=== PATIENT | female | born 1965 | race Caucasian/White ===

== ENCOUNTER 2018-12-28 20:54 | Emergency (ER) | payer OTHER ==
[2018-12-28] MEDS ORDERED: METOCLOPRAMIDE 5 MG/ML 2 ML VIAL IVP STA (21:52)
[2018-12-28] MEDS ORDERED: HYDROmorphone 0.5 MG/0.5 ML SYRINGE IVP STA (21:52)
[2018-12-28] MEDS ORDERED: SODIUM CHLORIDE 0.9% 1,000 ML IV STA (21:52)
--- NOTE | 2018-12-28 21:58 | ED ---
General Adult HPI - General Chief complaint: Nausea/Vomiting/Diarrhea Stated complaint: Abd pain Time Seen by Provider: 12/28/18 21:37 Source: patient, family, RN notes reviewed Mode of arrival: wheelchair Limitations: no limitations - History of Present Illness Initial comments: Patient is a pleasant 53-year-old female presenting to the emergency department with complaints of right-sided abdominal discomfort. Onset of symptoms was just a couple hours ago. Symptoms did start fairly after eating. Patient admits to intermittent. Patient has associated nausea and vomiting and sweating. Discomfort is somewhat severe. Discomfort is right abdomen and somewhat towards the back. No history of similar symptoms associated with urinary symptoms - Related Data Home Medications Medication Instructions Recorded Confirmed Cholecalciferol [Vitamin D3] 1,000 unit PO DAILY 12/28/18 12/28/18 Gabapentin [Neurontin] 300 mg PO TID 12/28/18 12/28/18 L.acidoph,Paracasei, B.lactis 1 cap PO DAILY 12/28/18 12/28/18 [Probiotic] Multivitamin [Multivitamins Adult 1 tab PO DAILY 12/28/18 12/28/18 Gummies] [place]-3/Dha/Epa/Fish Oil [Fish Oil 1 cap PO DAILY 12/28/18 12/28/18 500 mg Softgel] QUEtiapine [SEROquel] 25 mg PO HS 12/28/18 12/28/18 Wheat Dextrin [Benefiber] 1 pack PO DAILY 12/28/18 12/28/18 cloNIDine HCL [Catapres] 0.1 mg PO HS 12/28/18 12/28/18 clonazePAM [KlonoPIN] 0.25 mg PO DAILY 12/28/18 12/28/18 Previous Rx's Medication Instructions Recorded Cephalexin [Keflex] 500 mg PO QID #40 cap 12/29/18 Allergies Allergy/AdvReac Type Severity Reaction Status Date / Time ciprofloxacin [From Cipro] AdvReac Nausea & Verified 12/28/18 21:36 Vomiting & Diarrhea prednisone AdvReac Unknown Verified 12/28/18 21:36 Review of Systems ROS Statement: Those systems with pertinent positive or pertinent negative responses have been documented in the HPI. ROS Other: All systems not noted in ROS Statement are negative. Constitutional: Denies: fever Eyes: Denies: eye pain ENT: Denies: ear pain Respiratory: Denies: cough, dyspnea Cardiovascular: Denies: chest pain Endocrine: Denies: fatigue Gastrointestinal: Reports: abdominal pain, nausea, vomiting Genitourinary: Denies: dysuria, hematuria Musculoskeletal: Reports: back pain (Right flank) Skin: Denies: rash Neurological: Denies: weakness Past Medical History Past Medical History: No Reported History History of Any Multi-Drug Resistant Organisms: MRSA Date of last positivie culture/infection: 10/16/16 MDRO Source:: Urine Past Surgical History: No Surgical Hx Reported Past Psychological History: Anxiety Smoking Status: Current every day smoker Past Alcohol Use History: None Reported Past Drug Use History: None Reported General Exam Limitations: no limitations General appearance: alert, in no apparent distress Head exam: Present: atraumatic Eye exam: Present: normal appearance, PERRL ENT exam: Present: normal oropharynx Neck exam: Present: normal inspection Respiratory exam: Present: normal lung sounds bilaterally Cardiovascular Exam: Present: regular rate, normal rhythm Expanded Peripheral pulses: 2+: Dorsalis Pedis (R), Dorsalis Pedis (L) GI/Abdominal exam: Present: soft, tenderness (Moderate tenderness right side of the abdomen), guarding (Right-sided), normal bowel sounds. Absent: distended, rebound, rigid, pulsatile mass Extremities exam: Present: normal inspection Back exam: Present: tenderness (Mild tenderness right posterior flank region) Neurological exam: Present: alert Psychiatric exam: Present: normal affect, normal mood Skin exam: Present: normal color Course Vital Signs 12/28/18 12/28/18 12/28/18 21:10 22:20 23:13 Temperature 97.5 F L Pulse Rate 49 L 51 L 55 L Respiratory 18 18 16 Rate Blood Pressure 162/85 181/95 169/91 O2 Sat by Pulse 96 99 97 Oximetry 12/29/18 00:17 Temperature 98.5 F Pulse Rate 50 L Respiratory 18 Rate Blood Pressure 167/90 O2 Sat by Pulse 97 Oximetry Medical Decision Making - Medical Decision Making Patient reevaluated and states discomfort is tolerable at this point. Patient is updated on results. Case was discussed in detail with Dr. Zarco, who is comfortable with discharge of patient and will follow-up this week. Patient was updated. - Lab Data Result diagrams: 12/28/18 22:10 12/28/18 22:10 Lab Results 12/28/18 12/28/1819 Range/Units 22:10 22:10 22:10 WBC 17.1 H (3.8-10.6) k/uL RBC 5.82 H (3.80-5.40) m/uL Hgb 16.3 H (11.4-16.0) gm/dL Hct 51.9 H (34.0-46.0) % MCV 89.2 (80.0-100.0) fL MCH 27.9 (25.0-35.0) pg MCHC 31.3 (31.0-37.0) g/dL RDW 14.1 (11.5-15.5) % Plt Count 267 (150-450) k/uL Neutrophils % 84 % Lymphocytes % 11 % Monocytes % 3 % Eosinophils % 1 % Basophils % 0 % Neutrophils # 14.4 H (1.3-7.7) k/uL Lymphocytes # 1.9 (1.0-4.8) k/uL Monocytes # 0.5 (0-1.0) k/uL Eosinophils # 0.2 (0-0.7) k/uL Basophils # 0.1 (0-0.2) k/uL PT 10.5 (9.0-12.0) sec INR 1.0 (<1.2) APTT 19.4 L (22.0-30.0) sec Sodium 143 (137-145) mmol/L Potassium 5.0 (3.5-5.1) mmol/L Chloride 106 (98-107) mmol/L Carbon Dioxide 26 (22-30) mmol/L Anion Gap 11 mmol/L BUN 17 (7-17) mg/dL Creatinine 0.75 (0.52-1.04) mg/dL Est GFR (CKD-EPI)AfAm >90 (>60 ml/min/1.73 sqM) Est GFR (CKD-EPI)NonAf >90 (>60 ml/min/1.73 sqM) Glucose 151 H (74-99) mg/dL Calcium 10.4 H (8.4-10.2) mg/dL Total Bilirubin 0.7 (0.2-1.3) mg/dL AST 46 H (14-36) U/L ALT 50 (9-52) U/L Alkaline Phosphatase 85 (38-126) U/L Total Protein 8.2 (6.3-8.2) g/dL Albumin 4.9 (3.5-5.0) g/dL Amylase 75 (30-110) U/L Lipase 146 (23-300) U/L Urine Color Urine Appearance (Clear) Urine pH (5.0-8.0) Ur Specific [place] (1.001-1.035) Urine Protein (Negative) Urine Glucose (UA) (Negative) Urine Ketones (Negative) Urine Blood (Negative) Urine Nitrite (Negative) Urine Bilirubin (Negative) Urine Urobilinogen (<2.0) mg/dL Ur Leukocyte Esterase (Negative) Urine RBC (0-5) /hpf Urine WBC (0-5) /hpf Urine WBC Clumps (None) /hpf Ur Squamous Epith Cells (0-4) /hpf Urine Bacteria (None) /hpf Urine Mucus (None) /hpf 12/28/18 Range/Units 22:59 WBC (3.8-10.6) k/uL RBC (3.80-5.40) m/uL Hgb (11.4-16.0) gm/dL Hct (34.0-46.0) % MCV (80.0-100.0) fL MCH (25.0-35.0) pg MCHC (31.0-37.0) g/dL RDW (11.5-15.5) % Plt Count (150-450) k/uL Neutrophils % % Lymphocytes % % Monocytes % % Eosinophils % % Basophils % % Neutrophils # (1.3-7.7) k/uL Lymphocytes # (1.0-4.8) k/uL Monocytes # (0-1.0) k/uL Eosinophils # (0-0.7) k/uL Basophils # (0-0.2) k/uL PT (9.0-12.0) sec INR (<1.2) APTT (22.0-30.0) sec Sodium (137-145) mmol/L Potassium (3.5-5.1) mmol/L Chloride (98-107) mmol/L Carbon Dioxide (22-30) mmol/L Anion Gap mmol/L BUN (7-17) mg/dL Creatinine (0.52-1.04) mg/dL Est GFR (CKD-EPI)AfAm (>60 ml/min/1.73 sqM) Est GFR (CKD-EPI)NonAf (>60 ml/min/1.73 sqM) Glucose (74-99) mg/dL Calcium (8.4-10.2) mg/dL Total Bilirubin (0.2-1.3) mg/dL AST (14-36) U/L ALT (9-52) U/L Alkaline Phosphatase (38-126) U/L Total Protein (6.3-8.2) g/dL Albumin (3.5-5.0) g/dL Amylase (30-110) U/L Lipase (23-300) U/L Urine Color Yellow Urine Appearance Clear (Clear) Urine pH 6.0 (5.0-8.0) Ur Specific [place] 1.015 (1.001-1.035) Urine Protein Trace H (Negative) Urine Glucose (UA) Negative (Negative) Urine Ketones 1+ H (Negative) Urine Blood Small H (Negative) Urine Nitrite Negative (Negative) Urine Bilirubin Negative (Negative) Urine Urobilinogen <2.0 (<2.0) mg/dL Ur Leukocyte Esterase Large H (Negative) Urine RBC 19 H (0-5) /hpf Urine WBC 49 H (0-5) /hpf Urine WBC Clumps Rare H (None) /hpf Ur Squamous Epith Cells 5 H (0-4) /hpf Urine Bacteria Rare H (None) /hpf Urine Mucus Rare H (None) /hpf - Radiology Data Radiology results: image reviewed (Computed tomography scan of the abdomen pel vis shows Fabian hydronephrosis on the right kidney without obvious stone. Suspected stenosis or obstruction near the pelvis.) Disposition Clinical Impression: Urinary tract infection, Hydronephrosis Disposition: HOME SELF-CARE Condition: Stable Instructions (If sedation given, give patient instructions): Hydronephrosis (ED), Urinary Tract Infection in Women (ED) Additional Instructions: Please follow-up with urology, Dr. Roper this week. Please also follow-up with your primary care physician. Return for increased pain, vomiting, fevers, worsening symptoms or other concerns. Prescriptions: Cephalexin [Keflex] 500 mg PO QID #40 cap Is patient prescribed a controlled substance at d/c from ED?: No Referrals: Gaetano Zarco MD [STAFF PHYSICIAN] - 1-2 days Elida Isaac MD [STAFF PHYSICIAN] - 1-2 days
[2018-12-28 22:30] LABS: Basophils # (A) 0.1 k/uL (0-0.2); Basophils % (A) 0 %; Eosinophils # (A) 0.2 k/uL (0-0.7); Eosinophils % (A) 1 %; HCT 51.9 % (34.0-46.0); HGB 16.3 gm/dL (11.4-16.0); Lymphocytes # (A) 1.9 k/uL (1.0-4.8); Lymphocytes % (A) 11 %; MCH 27.9 pg (25.0-35.0); MCHC 31.3 g/dL (31.0-37.0); MCV 89.2 fL (80.0-100.0); Mean Platelet Volume 8.2; Monocytes # (A) 0.5 k/uL (0-1.0); Monocytes % (A) 3 %; Neutrophils # (A) 14.4 k/uL (1.3-7.7); Neutrophils % (A) 84 %; Platelet Count 267 k/uL (150-450); RBC 5.82 m/uL (3.80-5.40); RDW 14.1 % (11.5-15.5); WBC 17.1 k/uL (3.8-10.6)
[2018-12-28 22:39] LABS: ALT 50 U/L (9-52); AST 46 U/L (14-36); Albumin 4.9 g/dL (3.5-5.0); Alkaline Phosphatase 85 U/L (38-126); Amylase 75 U/L (30-110); Anion Gap 11 mmol/L; Blood Urea Nitrogen 17 mg/dL (7-17); Calcium 10.4 mg/dL (8.4-10.2); Carbon Dioxide 26 mmol/L (22-30); Chloride 106 mmol/L (98-107); Glucose 151 mg/dL (74-99); Lipase 146 U/L (23-300); Sodium 143 mmol/L (137-145); Total Bilirubin 0.7 mg/dL (0.2-1.3); Total Protein 8.2 g/dL (6.3-8.2)
[2018-12-28 22:54] LABS: Prothrombin Time 10.5 sec (9.0-12.0)
[2018-12-28 23:10] LABS: Partial Thromboplastin Time 19.4 sec (22.0-30.0)
[2018-12-28 23:22] LABS: Appearance,Urine Clear (Clear); Bacteria,Urine Rare /hpf; Bilirubin,Urine Negative (Negative); Blood,Urine Small (Negative); Color,Urine Yellow; Glucose,Urine (UA) Negative (Negative); Ketones,Urine 1+ (Negative); Leukocyte Esterase,Urine Large (Negative); Mucus,Urine Rare /hpf; Nitrite,Urine Negative (Negative); Protein,Urine Trace (Negative); RBC,Urine 19 /hpf (0-5); Specific Gravity,Urine 1.015 (1.001-1.035); Squamous Epithelial Cell,Urine 5 /hpf (0-4); Urobilinogen,Urine <2.0 mg/dL (<2.0); WBC,Urine 49 /hpf (0-5)
--- NOTE | 2018-12-28 23:31 | CT ---
EXAM: CT Abdomen and Pelvis Without Intravenous Contrast CLINICAL HISTORY: Reason: abdominal pain TECHNIQUE: Axial computed tomography images of the abdomen and pelvis without intravenous contrast. CTDI is 6.0 mGy and DLP is 296.4 mGy-cm. This CT exam was performed using one or more of the following dose reduction techniques: automated exposure control, adjustment of the mA and/or kV according to patient size, and/or use of iterative reconstruction technique. COMPARISON: CT abdomen-pelvis 10/16/2016 FINDINGS: Lung bases: Imaged lung bases are clear of focal infiltrates. ABDOMEN: Liver: Chronic right hepatic calcifications, unchanged. No other focal hepatic abnormalities. Gallbladder and bile ducts: Gallbladder is partially contracted. No calcified gallstones identified. No definite biliary dilatation. Pancreas: No definite pancreatic abnormality identified. Spleen: Spleen is unremarkable. Adrenals: No adrenal masses. Kidneys and ureters: Development of severe right hydronephrosis with marked dilatation of right pelvo-calyceal collecting system. No obstructing calculi identified. No ureteral dilatation. Punctate left renal calcification most likely vascular. No evidence of left-sided hydronephrosis or obstructing renal calculi. Stomach and bowel: Stomach is nondistended. No evidence of bowel obstruction or pneumoperitoneum. PELVIS: Appendix: Appendix not clearly identified. Bladder: Urinary bladder is unremarkable. No bladder calculi. Reproductive: Unremarkable as visualized. ABDOMEN and PELVIS: Intraperitoneal space: See above. Bones/joints: Mild lower lumbar spine degenerative changes with mild grade 1 L4-5 anterolisthesis. Vasculature: Moderate calcific atherosclerotic disease. No abdominal aortic aneurysm. Lymph nodes: No evidence of lymphadenopathy. IMPRESSION: Development of severe right hydronephrosis with marked pelvicalyceal dilatation. No obstructing calculi identified and no ureteral dilatation is evident. Findings raise possibility of right ureteropelvic junction obstruction/stenosis. Retrograde pyelography may be considered for further evaluation. No evidence of bowel obstruction or pneumoperitoneum.
[2018-12-29 00:19] VITALS: BP 167/90; PULSE 50; RESP 18; TEMP 98.5
[2018-12-29] MEDS ORDERED: cefTRIAXone IN SWFI 1,000 MG/10 ML SYRINGE IVP STA (00:22)
[2018-12-29] MEDS ORDERED: ONDANSETRON 4 MG ODT STARTER PACK 2 TAB BTL PO STA (00:55)
== END 2018-12-29 01:21 ==
LOC: EC 20:54
DX: N39.0 Urinary tract infection, site not specified (principal); N13.30 Unspecified hydronephrosis; F41.9 Anxiety disorder, unspecified; F17.200 Nicotine dependence, unspecified, uncomplicated; Z86.14 Personal history of Methicillin resistant Staphylococcus aureus infection; Z79.899 Other long term (current) drug therapy; Z88.1 Allergy status to other antibiotic agents; Z88.8 Allergy status to other drugs, medicaments and biological substances
CPT/HCPCS: 36415; 80053; 82150; 83690; 85025; 85610; 85730; 81001; 87086; 74176; 99284; 96374; 96375 ×2; 96361 ×2; J2765; J0696; S0119; J1170

== ENCOUNTER → 2019-09-10 | Outpatient (CLI) | payer OTHER ==
--- NOTE | 2019-09-10 15:19 | US ---
EXAMINATION TYPE: US kidneys/renal and bladder DATE OF EXAM: 09/10/2019 COMPARISON: NONE CLINICAL HISTORY: R39.89 Pain in bladder, N13.5 Rt ureteral obstruct. Patient states she had uretal surgery for a kink at the ureteropelvic junction. EXAM MEASUREMENTS: Right Kidney: 12.2 x 3.8 x 5.1 cm Left Kidney: 10.5 x 4.5 x 4.4 cm Post Void Residual Volume: 6ml Right Kidney: Moderate right-sided hydronephrosis Left Kidney: Pelvocaliectasis vs mild hydronephrosis Bladder: Within normal limits Bilateral Jets seen: Yes Normal Post Void Residual: yes No nephrolithiasis is seen. No masses are identified. The urinary bladder is anechoic. Bilateral u reteral jets are seen. IMPRESSION: Moderate right hydronephrosis and pelvocaliectasis versus mild hydronephrosis on the left. No source for the striking process is seen on ultrasound.
== END ==
LOC: RADUSWWP 14:17
PROVIDERS: ATTEND Family Medicine
DX: N13.30 Unspecified hydronephrosis (principal)
CPT/HCPCS: 76770

== ENCOUNTER → 2019-12-13 | Outpatient (CLI) | payer OTHER ==
--- NOTE | 2019-12-14 18:59 | CT ---
EXAMINATION TYPE: CT abdomen pelvis w con DATE OF EXAM: 12/13/2019 COMPARISON: 12/28/2018 HISTORY: Left upper quadrant pain CT DLP: 422.9 mGycm CONTRAST: CT scan of the abdomen and pelvis is performed with Oral Contrast and with IV Contrast, patient injec craig with 100 mL of Isovue 300. FINDINGS: LUNG BASES-: No visible nodule. No infiltrate. LIVER/GB: No calcified gallstones. Focal hepatic calcification. No space occupying hepatic lesion. Biliary tree is of normal caliber. PANCREAS: No inflammation. No distinct mass. SPLEEN: No splenic enlargement. No lesion seen. ADRENALS: No nodule. No thickening. KIDNEYS/BLADDER: No hydronephrosis. No nephrolithiasis. Right-sided parapelvic renal cysts with low lying right kidney. Renal cortical cyst lower pole left kidney measures approximately 1 cm. Urinary bladder grossly unremarkable. BOWEL: Normal appendix. Normal bowel caliber. No inflammation. GENITAL ORGANS: No gross abnormality. LYMPH NODES: No greater than 1cm abdominal or pelvic lymph nodes are appreciated. AORTA: No significant abnormality. OSSEOUS STRUCTURES: No significant abnormality is seen. OTHER: No significant additional abnormality is seen. IMPRESSION: 1. Right-sided parapelvic renal cysts with low lying right kidney. Renal cortical cyst lower pole lef t kidney measures approximately 1 cm.
== END ==
LOC: RADCTMAIN 11:17
PROVIDERS: ATTEND Family Medicine
DX: N28.1 Cyst of kidney, acquired (principal)
CPT/HCPCS: 74177; Q9967 ×2

== ENCOUNTER 2022-06-28 18:56 | Emergency (ER) | payer OTHER ==
[2022-06-28 20:00] VITALS: TEMP 99
[2022-06-28 20:05] VITALS: RESP 17
[2022-06-28] MEDS ORDERED: IPRATROPIUM-ALBUTEROL 3 ML NEB INHALATION STA (20:07)
[2022-06-28] MEDS ORDERED: dexAMETHasone 2 MG TAB PO STA (20:08)
--- NOTE | 2022-06-28 20:14 | ED ---
General Adult HPI - General Chief complaint: Upper Respiratory Infection Stated complaint: Pneumonia Time Seen by Provider: 06/28/22 19:55 Source: patient, RN notes reviewed, old records reviewed Mode of arrival: ambulatory Limitations: no limitations - History of Present Illness Initial comments: Patient is a 57-year-old female with past medical history remarkable for COPD, smoking, who presents emergency department after being sent by her PCP to rule out pneumonia. For the last 3 weeks, she has been having worsening congestion, shortness of breath. He has been coughing. Previously was having productive sputum of yellow, green mucous. States it is improved. Now more of a dry cough. Denies chest pain. Denies nausea, vomiting, diarrhea. Was not vaccinated for Covid. Was tested for Covid 2 days ago and was negative. Finished 2 courses of azithromycin with minimal improvement. Presents for further evaluation at this time after being sent by her PCP. - Related Data Home Medications Medication Instructions Recorded Confirmed Cholecalciferol [Vitamin D3] 1,000 unit PO DAILY 12/28/18 12/28/18 Gabapentin [Neurontin] 300 mg PO TID 12/28/18 12/28/18 L.acidoph,Paracasei, B.lactis 1 cap PO DAILY 12/28/18 12/28/18 [Probiotic] Multivitamin [Multivitamins Adult 1 tab PO DAILY 12/28/18 12/28/18 Gummies] [place]-3/Dha/Epa/Fish Oil [Fish Oil 1 cap PO DAILY 12/28/18 12/28/18 500 mg Softgel] QUEtiapine [SEROquel] 25 mg PO HS 12/28/18 12/28/18 Wheat Dextrin [Benefiber] 1 pack PO DAILY 12/28/18 12/28/18 cloNIDine HCL [Catapres] 0.1 mg PO HS 12/28/18 12/28/18 clonazePAM [KlonoPIN] 0.25 mg PO DAILY 12/28/18 12/28/18 Previous Rx's Medication Instructions Recorded Cephalexin [Keflex] 500 mg PO QID #40 cap 12/29/18 Ibuprofen [Motrin] 600 mg PO Q6HR PRN #20 tab 12/29/18 Albuterol Inhaler [Ventolin Hfa 1 puff INHALATION RT-TID #8 gm 06/28/22 Inhaler] Doxycycline Hyclate 100 mg PO BID 7 Days #14 capsule 06/28/22 dexAMETHasone [Decadron] 4 mg PO DAILY 5 Days #5 tablet 06/28/22 Allergies Allergy/AdvReac Type Severity Reaction Status Date / Time ciprofloxacin [From Cipro] AdvReac Nausea & Verified 06/28/22 19:27 Vomiting & Diarrhea prednisone AdvReac Unknown Verified 06/28/22 19:27 Review of Systems ROS Statement: Those systems with pertinent positive or pertinent negative responses have been documented in the HPI. Review of Systems: CONST: Denies fever EYES: Denies blurry vision ENT: Denies nasal congestion C/V: Denies Chest pain RESP: Endorses wheezing GI: Denies abdominal pain : Denies dysuria SKIN: Denies rash. MSK: Denies joint pain. NEURO: Denies headache ROS Other: All systems not noted in ROS Statement are negative. Past Medical History Past Medical History: No Reported History History of Any Multi-Drug Resistant Organisms: MRSA Date of last positivie culture/infection: 10/16/16 MDRO Source:: Urine Past Surgical History: No Surgical Hx Reported Past Psychological History: Anxiety Smoking Status: Current every day smoker Past Alcohol Use History: None Reported Past Drug Use History: None Reported General Exam - General Exam Comments Initial Comments: General: Appears in no acute distress. HEAD: Normal with no signs of head trauma. EYES: EOMI ENT: Hearing grossly intact, normal oropharynx. RESPIRATORY: Bilateral end expiratory wheezing. No obvious rhonchi. No hypoxia. No increased work of breathing. C/V: Regular rate and rhythm. S1 and S2 auscultated, no edema, peripheral pulses 2+ and intact throughout ABD: Abd is soft, nontender, nondistended EXT: Normal range of motion, no obvious deformity SKIN: No rashes or lesions observed on exposed skin. NEURO: Alert and oriented x 4. Limitations: no limitations Course Vital Signs 06/28/22 06/28/22 06/28/22 19:25 19:27 20:03 Temperature 97.4 F L 99.0 F Pulse Rate 90 83 Respiratory 18 18 17 Rate Blood Pressure 138/89 121/77 O2 Sat by Pulse 97 95 Oximetry 06/28/22 06/28/22 06/28/22 20:40 20:51 22:00 Temperature 99.0 F Pulse Rate 88 88 77 Respiratory 17 Rate Blood Pressure 129/78 O2 Sat by Pulse 95 Oximetry Medical Decision Making - Medical Decision Making Based on the patient's presentation and physical exam, I do believe she is having a COPD exacerbation as well as possible bronchitis or pneumonia. She'll be symptomatically treated with steroids, breathing treatment. We'll obtain a chest x-ray as well as the Covid swab. She was in agreement this plan. Vital signs within normal limits. No respiratory distress. Covid swab was negative. Chest x-ray shows COPD changes without signs of acute pneumonia. I discussed times with the patient. Wheezing and breathing are improved. I did discuss with her believe she is likely experiencing bronchitis with a COPD exacerbation. She was in agreement with this explanation. She'll be started on antibiotics as well as steroids and sent home with an albuterol inhaler. She was in agreement this plan. I will provide the patient with a prescription for Decadron, albuterol, doxycycline. I instructed the patient to follow up with their PCP in the next 1- 3 days. I explained that the patient should return to the emergency department if they experience any worsening symptoms. Strict return precautions were discussed with the patient. The patient expressed understanding of these instructions. I answered all questions that the patient had. The patient was discharged home in good condition with their prescriptions and follow up information. - Lab Data Lab Results 06/28/22 Range/Units 20:07 Coronavirus (PCR) Not Detected (Not Detectd) Disposition Clinical Impression: COPD exacerbation, Bronchitis Disposition: HOME SELF-CARE Condition: Good Instructions (If sedation given, give patient instructions): COPD (Chronic Obstructive Pulmonary Disease) (ED), Acute Bronchitis (ED) Prescriptions: dexAMETHasone [Decadron] 4 mg PO DAILY 5 Days #5 tablet Doxycycline Hyclate 100 mg PO BID 7 Days #14 capsule Albuterol Inhaler [Ventolin Hfa Inhaler] 1 puff INHALATION RT-TID #8 gm Is patient prescribed a controlled substance at d/c from ED?: No Referrals: Vini Gasca MD [Primary Care Provider] - 1-2 days Time of Disposition: 22:20
[2022-06-28 22:22] VITALS: BP 129/78; PULSE 77
[2022-06-28] MEDS ORDERED: DOXYCYCLINE 100 MG CAP PO STA (22:26)
--- NOTE | 2022-06-28 22:41 | XR ---
EXAM: XR Chest, 2 Views CLINICAL HISTORY: ITS.REASON XR Reason: cough TECHNIQUE: Frontal and lateral views of the chest. COMPARISON: No relevant prior studies available. FINDINGS: Lungs: Linear scarring or atelectasis at the left lung base. No consolidation. Pleural space: Unremarkable. No pneumothorax. Heart: Unremarkable. No cardiomegaly. Mediastinum: Unremarkable. Bones/joints: Unremarkable. IMPRESSION: No evidence of acute cardiopulmonary process.
== END 2022-06-28 22:35 | disposition home or self-care (01) ==
LOC: EC 18:56
DX: J44.1 Chronic obstructive pulmonary disease with (acute) exacerbation (principal); F17.200 Nicotine dependence, unspecified, uncomplicated; Z20.822 Contact with and (suspected) exposure to COVID-19; Z88.1 Allergy status to other antibiotic agents; Z88.8 Allergy status to other drugs, medicaments and biological substances
CPT/HCPCS: 94640; 87635; 71046; 99285; J8540

== ENCOUNTER 2023-03-30 12:21 | Day surgery (SDC) | payer OTHER ==
[2023-03-28 08:42] VITALS: BMI 35.3
[~2023-03-30 12:21] MED LIST: LACTATED RINGERS 1,000 ML IV SCH; LIDOCAINE 1% (10MG/ML) FOR IV START INTRADERMA PRN
[2023-03-30 13:17] VITALS: TEMP 97.2
[2023-03-30] MEDS ORDERED: LIDOCAINE 2% INJ 20 MG/ML (2 ML VIAL) ONE (14:50)
[2023-03-30] MEDS ORDERED: PROPOFOL 10 MG/ML 20 ML VIAL IV ONE (14:50)
--- NOTE | 2023-03-30 14:58 | P.PCN ---
Date of Procedure: 03/30/23 Procedure(s) Performed: BRIEF HISTORY: Patient is a 57-year-old, pleasant, white female scheduled for an upper endoscopy as a part of evaluation of epigastric pain/passive regurgitation and heartburn for the last 6 months duration. Presently on Protonix 20 mg twice daily and Pepcid at bedtime with some improvement in his symptoms. PROCEDURE PERFORMED: Esophagogastroduodenoscopy with biopsy. PREOPERATIVE DIAGNOSIS: GERD/epigastric pain and passive regurgitation. IV sedation per anesthesia. PROCEDURE: After informed consent was obtained, the patient was brought into the endoscopy unit. IV sedation was administered by Anesthesia under continuous monitoring. Initially the Olympus GIF-140 video endoscope was inserted into the mouth. Esophagus intubated without any difficulty. It was gradually advanced into the stomach and duodenum and carefully examined. The bulb and the second part of the duodenum appeared normal. The scope at this time was withdrawn to the stomach, adequately insufflated with air, and upon careful examination, mucosa of the antrum, had mild gastritis and biopsies were done from this area. Mucosa of the body, cardia and the fundus appeared normal. The scope was then withdrawn into the esophagus. The GE junction was located at 39 cm from the incisors. Small hiatal hernia. The esophagus appeared normal. There were no erosions or ulcerations seen and the patient tolerated the procedure well. IMPRESSION: 1. Mild antral gastritis. 2. Small hiatal hernia. RECOMMENDATIONS: The findings of this examination were discussed with the patient as well as a family. She was advised to follow with the biopsy results and continue with Protonix 20 mg twice daily and change the Pepcid to bedtime and follow antireflux measures.
[2023-03-30 15:06] VITALS: RESP 16
[2023-03-30 15:27] VITALS: BP 123/83; PULSE 72
== END 2023-03-30 15:47 | disposition home or self-care (01) ==
LOC: ORWHC2ENDO 12:21
PROVIDERS: ATTEND Internal Medicine Gastroenterology
DX: K29.50 Unspecified chronic gastritis without bleeding (principal); K44.9 Diaphragmatic hernia without obstruction or gangrene; I10 Essential (primary) hypertension; J44.9 Chronic obstructive pulmonary disease, unspecified; F41.9 Anxiety disorder, unspecified; K21.9 Gastro-esophageal reflux disease without esophagitis; Z88.8 Allergy status to other drugs, medicaments and biological substances; Z79.899 Other long term (current) drug therapy
CPT/HCPCS: 88305; 43239; J2704; J2001

== ENCOUNTER → 2023-10-23 | Outpatient (CLI) | payer OTHER ==
--- NOTE | 2023-10-28 12:20 | CT ---
EXAMINATION TYPE: CT chest w con CT DLP: 423.1 mGycm, Automated exposure control for dose reduction was used. DATE OF EXAM: 10/23/2023 2:15 PM COMPARISON: Chest x-ray 08/16/2023. No prior CT chest available. . CLINICAL INDICATION:Female, 58 years old with history of R91.8 ABNORMAL LUNG FIELD; PHH, COPD, Emphys cameron, Lung nodules found on prior. TECHNIQUE: Multiple axial images were obtained through the chest. Sagittal and coronal reformats were created for review. Contrast used:100ml mL of Isovue 300 with IV Contrast (None if empty) Oral contrast used: (None if empty) FINDINGS: LUNGS/ PLEURA: Moderate pulmonary emphysematous changes, upper lobe predominant. Mild biapical fibron odular pleural parenchymal changes. There are linear and bandlike areas of scarring or atelectasis in the lower lobes. No airspace consolidation, pleural effusion, or pneumothorax. A right upper lobe 3 mm nodule image 13 series 4. Cluster of tiny nodules in the anterior left upper lobe image 13. AIRWAY: Thin linear filling defect in the upper trachea likely mucous secretions. Small amount in the proximal right mainstem bronchus. Central airways are patent. LOWER NECK: No significant findings. MEDIASTINUM: No gross evidence of adenopathy. HEART: Normal heart size. Mild to moderate coronary artery calcification and/or stents. Trace pericar dial effusion. VASCULATURE: Moderate mixed aortic atherosclerotic disease, mostly along the arch and involving the branch vessels. There is approximately 50% stenosis of the origins of the brachiocephalic, left commo n carotid, and left subclavian arteries. Ascending aorta is 3.4 CM, descending is 2.4 CM. Aorta is c onsidered ectatic in its ascending segment. Pulmonary trunk measures 2.5 CM. Pulmonary trunk is norm al in size. Grossly preserved enhancement of the pulmonary arteries, in the limits of non-CTA exam. SOFT TISSUES/LYMPH NODES: Unremarkable soft tissues. No axillary adenopathy. UPPER ABDOMEN: There could be mild hepatic steatosis. Small right adrenal nodule up to 13 x 10 mm wit h average attenuation 38HU on this postcontrast study. Small left adrenal nodule measures up to 13 x 11 mm, attenuation 25 Hounsfield units. These appear to be present on prior CT abdomen 12/13/2019 but are now much better seen due to increased intrinsic contrast from surrounding fat; these do not seem significantly changed. Mild/moderate mixed atherosclerotic plaque in the upper abdominal aorta. MUSCULOSKELETAL: No acute osseous abnormality. Mild disc degeneration changes are present throughout the included thoracolumbar spine. IMPRESSION: 1. Moderate pulmonary emphysematous changes with areas of linear scarring and/or atelectasis in the lower lobes. 2. A few tiny pulmonary nodules, 3 mm or less. Incidentally detected nodules of this size are genera lly considered benign in individuals without concomitant risk factors such as smoking history or othe r risk factors for malignancy. Follow up imaging is generally not performed, in accordance with Fleis chner Society guidelines. In high-risk patients, a [address] thorax can be considered. 3. Small bilateral adrenal nodules, indeterminate features on this study but appear stable from 12/13 and strongly favored to be benign adenomas. 4. Moderate atherosclerotic disease as above.
== END | disposition home or self-care (01) ==
LOC: RADCTMAIN 13:48
PROVIDERS: ATTEND Internal Medicine
DX: J43.9 Emphysema, unspecified (principal); I25.10 Atherosclerotic heart disease of native coronary artery without angina pectoris; R91.8 Other nonspecific abnormal finding of lung field; J98.4 Other disorders of lung
CPT/HCPCS: 71260; Q9967

== ENCOUNTER 2024-01-28 16:13 | Inpatient (IN) | payer OTHER ==
--- NOTE | 2024-01-28 17:42 | ED ---
General Adult HPI - General Chief complaint: Neuro Symptoms/Deficit Stated complaint: Neuro Symptoms Time Seen by Provider: 01/28/24 17:18 Source: patient, family Mode of arrival: wheelchair Limitations: no limitations - History of Present Illness Initial comments: Dictation was produced using [employer] dictation software. please excuse any grammatical, word or spelling errors. Chief Complaint: 58-year-old female presents with strokelike symptoms History of Present Illness: Patient is a 58-year-old female presents to the emergency department with family for strokelike symptoms. Patient's symptoms initially began Sunday. She was taken urgently to [facility]. She was evaluated then and was told that her symptoms are very vague and it is left likely a stroke however they did admit patient observation. She apparently left AGAINST MEDICAL ADVICE. She seemed to be doing well until she got home her symptoms began. History of present illness obtained from family states that patient has been having word finding difficulties and she is also very slow to respond. She is generalized weakness they are not sure if she is having a str fabiana versus if she is having drug interactions. She takes multiple medications for psychiatric reasons. The ROS documented in this emergency department record has been reviewed and confirmed by me. Those systems with pertinent positive or negative responses have been documented in the HPI. All other systems are other negative and/or noncontributory. - Related Data Home Medications Medication Instructions Recorded Confirmed Gabapentin [Neurontin] 300 mg PO TID 12/28/18 01/28/24 QUEtiapine [SEROquel] 50 mg PO HS 12/28/18 01/28/24 cloNIDine HCL [Catapres] 0.1 mg PO 12/28/18 01/28/24 clonazePAM [KlonoPIN] 0.25 mg PO DAILY@0800 12/28/18 01/28/24 Escitalopram [Lexapro] 20 mg PO DAILY 03/28/23 01/28/24 Melatonin 5 mg PO HS 03/28/23 01/28/24 Pantoprazole Sodium [Protonix] 20 mg PO HS 03/28/23 01/28/24 clonazePAM [KlonoPIN] 0.5 mg PO DAILY@1400 03/28/23 01/28/24 Albuterol Inhaler [Ventolin Hfa 2 puff INHALATION RT-Q6H PRN 01/28/24 01/28/24 Inhaler] Atorvastatin [Lipitor] 40 mg PO DAILY 01/28/24 01/28/24 Budesonide/Glycopyr/Formoterol 1 puff INHALATION RT-BID 01/28/24 01/28/24 [Breztri Aerosphere Inhaler] Ergocalciferol (Vitamin D2) 1,250 mcg PO QMONTHLY 01/28/24 01/28/24 [Drisdol (50,000 Iu)] Ipratropium-Albuterol Nebulize 3 ml INHALATION RT-TID 01/28/24 01/28/24 [Duoneb 0.5 mg-3 mg/3 ml Soln] Montelukast Sodium 10 mg PO HS 01/28/24 01/28/24 Sennosides [Senokot] 8.6 mg PO DAILY PRN 01/28/24 01/28/24 cycloSPORINE 0.05% OPHTH SOLN 1 applicator BOTH EYES Q12H 01/28/24 01/28/24 [Restasis] hydroCHLOROthiazide [Hydrodiuril] 25 mg PO DAILY 01/28/24 01/28/24 Allergies Allergy/AdvReac Type Severity Reaction Status Date / Time ciprofloxacin [From Cipro] AdvReac Nausea & Verified 01/28/24 19:44 Vomiting & Diarrhea prednisone AdvReac ANXIETY Verified 01/28/24 19:44 Review of Systems ROS Statement: Those systems with pertinent positive or pertinent negative responses have been documented in the HPI. ROS Other: All systems not noted in ROS Statement are negative. Past Medical History Past Medical History: COPD, GERD/Reflux Additional Past Medical History / Comment(s): ON O2 2L/NC ATC. EMPHYSEMA History of Any Multi-Drug Resistant Organisms: MRSA Date of last positivie culture/infection: 10/16/16 MDRO Source:: Urine Past Surgical History: No Surgical Hx Reported Additional Past Surgical History / Comment(s): URETER SX 5 YRS AGO. COLONOSCOPY. HAD SOME NASAL/THROAT LESIONS REMOVED BY ENT Past Anesthesia/Blood Transfusion Reactions: No Reported Reaction Past Psychological History: Anxiety Smoking Status: Former smoker - Past Family History Mother Family Medical History: No Reported History General Exam - General Exam Comments Initial Comments: PHYSICAL EXAM: General Impression: Alert and oriented x3, not in acute distress HEENT: Normocephalic atraumatic, extra-ocular movements intact, pupils equal and reactive to light bilaterally, mucous membranes moist. Cardiovascular: Heart regular rate and rhythm Chest: Able to complete full sentences, no retractions, no tachypnea Abdomen: abdomen soft, non-tender, non-distended, no organomegaly Musculoskeletal: Pulses present and equal in all extremities, no peripheral edema Motor: no focal deficits noted Neurological: CN II-XII grossly intact, globally weak, word finding difficulties, aphasic Skin: Intact with no visualized rashes Psych: Normal affect and mood Limitations: no limitations Course Vital Signs 01/28/24 01/28/24 01/28/24 16:20 16:26 17:26 Temperature 98.1 F Pulse Rate 98 81 88 Respiratory 16 16 16 Rate Blood Pressure 120/83 137/76 O2 Sat by Pulse 91 L 89 L 96 Oximetry 01/28/24 18:00 Temperature Pulse Rate 86 Respiratory 16 Rate Blood Pressure 122/74 O2 Sat by Pulse 98 Oximetry Medical Decision Making - Medical Decision Making Was pt. sent in by a medical professional or institution (, PA, DELI CLERK, urgent care, hospital, or fci...) When possible be specific @ -No Did you speak to anyone other than the patient for history (EMS, parent, family, police, friend...)? What history was obtained from this source @ -Spoke with family as described above Did you review nursing and triage notes (agree or disagree)? Why? @ -I reviewed and agree with nursing and triage notes Were old charts reviewed (outside hosp., previous admission, EMS record, old EKG, old radiological studies, urgent care reports/EKG's, fci records)? Report findings @ -No old charts were reviewed Differential Diagnosis (chest pain, altered mental status, abdominal pain women, abdominal pain men, vaginal bleeding, musculoskeletal, weakness, fever, dyspnea, syncope, headache, dizziness, GI bleed, back pain, seizure, CVA, palpatations, mental health)? @ - Differential CVA: Ischemic stroke, hemorrhagic stroke, brain tumor, atypical migraine, Wernicke's encephalopathy, seizure, multiple sclerosis, meningitis, encephalitis, hypoglycemia, Guillain-Cook, electrolytes disturbance, myasthenia gravis.... This is not meant to be an all-inclusive list EKG interpreted by me (3pts min.). @ -None done X-rays interpreted by me (1pt min.). @ -None done CT interpreted by me (1pt min.). @ -CT scan the brain shows subacute left frontal infarct U/S interpreted by me (1pt. min.). @ -None done What testing was considered but not performed or refused? (CT, X-rays, U/S, labs)? Why? @ -None What meds were considered but not given or refused? Why? @ -None Did you discuss the management of the patient with other professionals (professionals i.e. , PA, DELI CLERK, lab, RT, psych nurse, adoption social worker, tablet machine operator, teacher, probation and parole officer, returned case inspector)? Give summary @ -Case discussed with hospitalist for admission Was smoking cessation discussed for >3mins.? @ -No Was critical care preformed (if so, how long)? @ -No Were there social determinants of health that impacted care today? How? (Homelessness, low income, unemployed, alcoholism, drug addiction, transportation, low edu. Level, literacy, decrease access to med. care, intermediate, rehab)? @ -No Was there de-escalation of care discussed even if they declined (Discuss DNR or withdrawal of care, Hospice)? DNR status @ -No What co-morbidities impacted this encounter? (DM, HTN, Smoking, COPD, CAD, Cancer, CVA, ARF, Chemo, Hep., AIDS, mental health diagnosis, sleep apnea, morbid obesity)? @ -None Was patient admitted / discharged? Hospital course, mention meds given and route, prescriptions, significant lab abnormalities, going to OR and other pertinent info. @ -58-year-old female presents emergency department with strokelike symptoms. Vital signs upon arrival are within acceptable limits. Patient seemed to have had sputtering symptoms since Sunday. Patient has NIH score of 23. Patient outside the window for alteplase. CT scan the brain shows left frontal infarct that is subacute. CT angiography pending. Laboratory evaluation obtained. Patient on aspirin will be admitted with consultation to neurology for CVA treatment. Undiagnosed new problem with uncertain prognosis? @ -No Drug Therapy requiring intensive monitoring for toxicity (Heparin, Nitro, Insulin, Cardizem)? @ -No Were any procedures done? @ -No Diagnosis/symptom? Acute, or Chronic, or Acute on Chronic? Uncomplicated (without systemic symptoms) or Complicated (systemic symptoms)? @ -CVA Side effects of treatment? @ -No Exacerbation, Progression, or Severe Exacerbation? @ -No Poses a threat to life or bodily function? How? (Chest pain, USA, GA, pneumonia, PE, COPD, DKA, ARF, appy, cholecystitis, CVA, Diverticulitis, Homicidal, Suicidal, threat to staff... and all critical care pts) @ -Yes - Lab Data Result diagrams: 01/28/24 17:40 01/28/24 17:40 Lab Results 01/28/24 01/28/24 01/28/24 Range/Units 17:40 17:40 17:40 WBC 10.2 (3.8-10.6) k/uL RBC 4.94 (3.80-5.40) m/uL Hgb 13.8 (11.4-16.0) gm/dL Hct 43.5 (34.0-46.0) % MCV 88.0 (80.0-100.0) fL MCH 27.8 (25.0-35.0) pg MCHC 31.6 (31.0-37.0) g/dL RDW 14.0 (11.5-15.5) % Plt Count 333 (150-450) k/uL MPV 8.3 Neutrophils % 68 % Lymphocytes % 23 % Monocytes % 4 % Eosinophils % 3 % Basophils % 1 % Neutrophils # 7.0 (1.3-7.7) k/uL Lymphocytes # 2.3 (1.0-4.8) k/uL Monocytes # 0.4 (0-1.0) k/uL Eosinophils # 0.3 (0-0.7) k/uL Basophils # 0.1 (0-0.2) k/uL PT 10.4 (10.0-12.5) sec INR 0.9 (<1.2) APTT 23.9 (22.0-30.0) sec Sodium 139 (137-145) mmol/L Potassium 4.0 (3.5-5.1) mmol/L Chloride 106 (98-107) mmol/L Carbon Dioxide 25 (22-30) mmol/L Anion Gap 8 mmol/L BUN 15 (7-17) mg/dL Creatinine 0.96 (0.52-1.04) mg/dL Est GFR (CKD-EPI)AfAm 75 (>60 ml/min/1.73 sqM) Est GFR (CKD-EPI)NonAf 65 (>60 ml/min/1.73 sqM) Glucose 122 H (74-99) mg/dL Calcium 9.8 (8.4-10.2) mg/dL Disposition Clinical Impression: Cerebrovascular accident (CVA) Disposition: ADMITTED IP TO THIS [facility] Condition: Serious Referrals: Vini Gasca MD [Primary Care Provider] - 1-2 days Decision Time: 20:14
[2024-01-28 19:43] LABS: Basophils # (A) 0.1 k/uL (0-0.2); Basophils % (A) 1 %; Eosinophils # (A) 0.3 k/uL (0-0.7); Eosinophils % (A) 3 %; HCT 43.5 % (34.0-46.0); HGB 13.8 gm/dL (11.4-16.0); Lymphocytes # (A) 2.3 k/uL (1.0-4.8); Lymphocytes % (A) 23 %; MCH 27.8 pg (25.0-35.0); MCHC 31.6 g/dL (31.0-37.0); Mean Platelet Volume 8.3; Monocytes # (A) 0.4 k/uL (0-1.0); Monocytes % (A) 4 %; Neutrophils % (A) 68 %; Platelet Count 333 k/uL (150-450); RBC 4.94 m/uL (3.80-5.40); WBC 10.2 k/uL (3.8-10.6)
[2024-01-28 19:55] LABS: INR 0.9 (<1.2); Partial Thromboplastin Time 23.9 sec (22.0-30.0); Prothrombin Time 10.4 sec (10.0-12.5)
--- NOTE | 2024-01-28 19:59 | CT ---
EXAMINATION TYPE: CT brain wo con DATE OF EXAM: 01/28/2024 COMPARISON: None HISTORY: difficulty speaking CT DLP: 1153.4 mGycm Automated exposure control for dose reduction was used. FINDINGS: The ventricles, basal cisterns and sulci of the convexities are within normal limits and there is no mass effect or shift of midline structures. There is a small to moderate focal area of abnormal density in the posterior left frontal cortex and subcortical white matter consistent with acute to subacute ischemic infarct. There is no acute intra or extra-axial hemorrhage. The posterior fossa and brainstem, fourth ventricle and cerebellopontine angles appear normal. The intraorbital contents. Visualized paranasal sinuses and mastoid air cells are well aerated IMPRESSION: 1. NO ACUTE BLEED OR MASS EFFECT. 2. FINDINGS CONSISTENT WITH A SMALL TO MODERATE ACUTE TO SUBACUTE POSTERIOR LEFT FRONTAL INFARCT.
[2024-01-28 20:00] LABS: African American GFR (CKD) 75 (>60 ml/min/1.73 sqM); Anion Gap 8 mmol/L; Blood Urea Nitrogen 15 mg/dL (7-17); Calcium 9.8 mg/dL (8.4-10.2); Carbon Dioxide 25 mmol/L (22-30); Chloride 106 mmol/L (98-107); Glucose 122 mg/dL (74-99); Non-African American GFR(CKD) 65 (>60 ml/min/1.73 sqM); Sodium 139 mmol/L (137-145)
[2024-01-28] MEDS: ASPIRIN 81 MG PO STA (20:39)
--- NOTE | 2024-01-28 20:52 | CT ---
EXAMINATION TYPE: CT angio head neck DATE OF EXAM: 01/28/2024 HISTORY: acute infarct found on brain CT COMPARISON: CT DLP: 512.3 mGycm. Automated Exposure Control for Dose Reduction was Utilized. TECHNIQUE: CTA scan of the head and neck is performed with IV Contrast, patient injected with 65ml m L of Isovue 370, axial images are obtained, coronal and sagittal reformatted images are reviewed. 3D reconstructed images are created on an independent workstation and reviewed. FINDINGS: FINDINGS: The brachiocephalic origins are widely patent and no significant stenosis. There is mild calcified plaque the origin of the left internal carotid artery but minimal stenosis. T here is mild to moderate calcified plaque in the distal right common carotid artery and origin of the right internal carotid artery resulting in a mild less than 40% stenosis. There is no stenosis of the vertebral arteries. The left vertebral artery is markedly dominant. Intracranially, there is no stenosis, segmental occlusion, sizable aneurysm sac or vascular malformat ion. IMPRESSION:. 1.There is evidence of mild arteriosclerotic disease involving the carotid bifurcations but no signif icant stenosis as described above 2. No occlusive disease or sizable aneurysm sac or vascular malformation intracranially. NASCET criteria was used in interpretation of this exam?
[2024-01-28] MEDS: QUEtiapine 50 MG TAB PO SCH (22:25)
[2024-01-28] MEDS: MONTELUKAST 10 MG TAB PO SCH (22:25)
[2024-01-28] MEDS: GABAPENTIN 300 MG CAP PO SCH (22:25)
[2024-01-28] MEDS: cloNIDine HCL 0.1 MG TAB PO SCH (22:25)
[2024-01-28] MEDS: MELATONIN 5 MG TABLET PO SCH (22:25)
[2024-01-28] MEDS: cycloSPORINE 0.05% OPHTH 0.4 ML DROPERETTE BOTH EYES SCH (22:30)
[2024-01-29] MEDS: clonazePAM 0.5 MG TAB PO SCH ×2 (08:34→14:16)
[2024-01-29] MEDS: ATORVASTATIN 40 MG TAB PO SCH (08:34)
[2024-01-29] MEDS: ESCITALOPRAM 20 MG TAB PO SCH (08:34)
[2024-01-29] MEDS: ASPIRIN 325 MG TAB PO SCH (08:34)
[2024-01-29] MEDS: IPRATROPIUM-ALBUTEROL 3 ML NEB INHALATION SCH (09:25)
--- NOTE | 2024-01-29 15:33 | P.CNNES ---
History of Present Illness Consult date: 01/29/24 Requesting physician: Thomas Parker Reason for Consult: cva History of Present Illness: this is a 58-year-old woman who presented emergency department because of the speech difficulty. The patient is accompanied with her daughter. Since the patient has been having speech difficulty since this past Sunday. She is having word finding difficulty, stumbling towards searching for the words according to the daughter. They initially were taken to [facility] by EMS according to the daughter and that they were told there is nothing neurological but they wanted the patient to stay overnight according to the patient daughter for further monitoring but the patient decided to leave AMA. According to the daughter her symptoms has improved but not resolved yet. Denies any weakness any visual disturbance any difficulty swallowing. She has history of TIA in the age of 30s. She is not on any antiplatelets. She is an ex-smoker smoking about 2 years ago. Some of the workup during this hospital visit consisted of: CBC with differential and Chemstrip panel is unremarkable. CT of the head is reported as no acute bleed or mass effect. Finding consistent with a small to moderate acute to subacute posterior left frontal infarct. I personally reviewed the imaging and I felt was more subacute. CT of the origin of the head and neck was reported as there is evidence of mild atherosclerotic disease involving the carotid bifurcation but no significant stenosis. No occlusive disease or sizable aneurysm sac or vascular malformation intracranially. EKG is reported as sinus rhythm. per the ED attending her NIH was scale was a 23 and she is outside the IV thrombolytic window which shows left frontal infarct the subacute. It seems the risk outweighed the benefit of IV thrombolytic. Review of Systems Review of system: The 12 point system was reviewed and apparent positive and negative per HPI. Past Medical History Past Medical History: COPD, GERD/Reflux Additional Past Medical History / Comment(s): ON O2 2L/NC ATC. EMPHYSEMA History of Any Multi-Drug Resistant Organisms: MRSA Date of last positivie culture/infection: 10/16/16 MDRO Source:: Urine Past Surgical History: No Surgical Hx Reported Additional Past Surgical History / Comment(s): URETER SX 5 YRS AGO. COLONOSCOPY. HAD SOME NASAL/THROAT LESIONS REMOVED BY ENT Past Anesthesia/Blood Transfusion Reactions: No Reported Reaction Past Psychological History: Anxiety Smoking Status: Former smoker - Past Family History Mother Family Medical History: No Reported History Medications and Allergies Home Medications Medication Instructions Recorded Confirmed Type Gabapentin [Neurontin] 300 mg PO TID 12/28/18 01/28/24 History QUEtiapine [SEROquel] 50 mg PO HS 12/28/18 01/28/24 History cloNIDine HCL [Catapres] 0.1 mg PO HS 12/28/18 01/28/24 History clonazePAM [KlonoPIN] 0.25 mg PO DAILY@0800 12/28/18 01/28/24 History Escitalopram [Lexapro] 20 mg PO DAILY 03/28/23 01/28/24 History Melatonin 5 mg PO HS 03/28/23 01/28/24 History Pantoprazole Sodium [Protonix] 20 mg PO HS 03/28/23 01/28/24 History clonazePAM [KlonoPIN] 0.5 mg PO DAILY@1400 03/28/23 01/28/24 History Albuterol Inhaler [Ventolin Hfa 2 puff INHALATION RT-Q6H PRN 01/28/24 01/28/24 History Inhaler] Atorvastatin [Lipitor] 40 mg PO DAILY 01/28/24 01/28/24 History Budesonide/Glycopyr/Formoterol 1 puff INHALATION RT-BID 01/28/24 01/28/24 History [Breztri Aerosphere Inhaler] Ergocalciferol (Vitamin D2) 1,250 mcg PO QMONTHLY 01/28/24 01/28/24 History [Drisdol (50,000 Iu)] Ipratropium-Albuterol Nebulize 3 ml INHALATION RT-TID 01/28/24 01/28/24 History [Duoneb 0.5 mg-3 mg/3 ml Soln] Montelukast Sodium 10 mg PO HS 01/28/24 01/28/24 History Sennosides [Senokot] 8.6 mg PO DAILY PRN 01/28/24 01/28/24 History cycloSPORINE 0.05% OPHTH SOLN 1 applicator BOTH EYES Q12H 01/28/24 01/28/24 History [Restasis] hydroCHLOROthiazide [Hydrodiuril] 25 mg PO DAILY 01/28/24 01/28/24 History Allergies Allergy/AdvReac Type Severity Reaction Status Date / Time ciprofloxacin [From Cipro] AdvReac Nausea & Verified 01/28/24 19:44 Vomiting & Diarrhea prednisone AdvReac ANXIETY Verified 01/28/24 19:44 Physical Examination - Vital Signs Vital Signs: Vital Signs Temp Pulse Resp BP Pulse Ox 01/29/24 13:14 86 18 135/85 94 L 01/29/24 12:34 76 01/29/24 12:26 74 01/29/24 09:40 98.2 F 71 18 94/68 92 L 01/29/24 09:33 80 01/29/24 09:25 79 01/29/24 04:30 71 18 106/78 95 01/29/24 02:35 75 18 120/73 95 01/28/24 22:00 73 18 114/95 96 01/28/24 18:00 86 16 122/74 98 01/28/24 17:26 88 16 96 01/28/24 16:26 81 16 137/76 89 L 01/28/24 16:20 98.1 F 98 16 120/83 91 L GENERAL: The patient is lying in bed and is not in acute distress. NEUROLOGICAL: Higher mental function: The patient is awake, alert, oriented to self, place and time. Patient is following commands. Has Motor aphasia. Intact repetition. No neglect. Cranial nerves: The pupils are round, equal and reactive to light and accommodation. Visual garcia are full to confrontation throughout. Extraocular movement is intact no nystagmus is noted. Facial sensation is normal to touch throughout. The facial strength is normal throughout. Hearing is normal bilaterally to hand rub. Tongue is midline and moved [id number] without any difficulty. No dysarthria is noted. Shoulder shrug is normal bilaterally. Motor: The strength is 5 over 5 throughout. Normal tone and bulk. Cerebellum: Normal finger to nose heel to vernon bilaterally. Sensation: Sensation is normal to touch throughout. Reflexes (right/left): 2+ throughout. Plantars are downgoing bilaterally. Results - Laboratory Findings CBC and BMP: 01/28/24 17:40 01/28/24 17:40 Abnormal Lab Findings: Abnormal Labs 01/28/24 17:40 Glucose 122 H Assessment and Plan Assessment: this is a 58-year-old woman who presents because of the speech difficulties since this Sunday. She is having word finding difficulty, and some of her words and searching for the words per the daughter. Acute Broca aphasia. CT head shows subacute hypodensity over the left frontal. No IV thrombolytic since outside window and risk outweigh benefit. Unknown exact etiology. History of TIA in her 30's history of COPD/emphysema Underlying history of hypertension Anxiety History of UTI Ex-smoke for 2 years Plan: patient started on aspirin 325 daily by the ED team. I also added Plavix 75 mg daily. Patient was not on any antiplatelets prior to this. She was sore on the Lipitor 40 mg daily by the primary team. I ordered 2-D echo as well as MRI the brain Lipid panel is ordered pending Continue her checks Cardiac monitoring PT OT and DATA TECHNICIAN are consulted Highly recommend an outpatient hypercoagulable workup especially since she had the TIA at a young age. For DVT prophylaxis I started the patient on subcu heparin 5000 units every 12 hours Upon discharge recommend the patient the follow-up with a neurologist as outpatient within 1-2 weeks The plan discussed with the patient and her daughters at bedside Thank you for the consultation Time with Patient: Greater than 30
[2024-01-29] MEDS: CLOPIDOGREL 75 MG TAB PO SCH (15:40)
[2024-01-29 16:08] LABS: Chol/HDL Ratio 3.95 Ratio; LDL Cholesterol,Calculated 149.8 mg/dL (0.0-131.0); VLDL Calculation 18.28 mg/dL (5.00-40.00)
[2024-01-29] MEDS: PANTOPRAZOLE 40 MG TABLET PO SCH (21:10)
[2024-01-29] MEDS: HEPARIN SODIUM,PORCINE 5,000 UNIT/ML 1 ML VIAL SQ SCH (21:10)
--- NOTE | 2024-01-30 10:09 | CA ---
Transthoracic Echo Report Name: Ana Beasley Age: 58 Gender: F : 1965 Exam Date: 01/29/2024 12:04 Exam Location: [place] [facility] Ht (in): 64 Wt (lb): 205 Ordering Physician: Aristides Jeong MD Attending/Referring Phys: Beverage Host Danelle Wong RDCS Procedure CPT: Indications: CVA Cardiac Hx: Technical Quality: Fair Contrast 1: Total Dose (mL): Contrast 2: Total Dose (mL): MEASUREMENTS (Male / Female) Normal Values 2D ECHO LV Diastolic Diameter PLAX 5.1 cm 4.2 - 5.9 / 3.9 - 5.3 cm LV Systolic Diameter PLAX 3.4 cm IVS Diastolic Thickness 1.1 cm 0.6 - 1.0 / 0.6 - 0.9 cm LVPW Diastolic Thickness 1.1 cm 0.6 - 1.0 / 0.6 - 0.9 cm LV Relative Wall Thickness 0.4 RV Internal Dim ED PLAX 2.8 cm LA Systolic Diameter LX 3.3 cm 3.0 - 4.0 / 2.7 - 3.8 cm LA Volume 26.2 cm??? 18 - 58 / 22 - 52 cm??? LA Volume Index 12.5 cm???/m??? 16 - 28 cm???/m??? M-MODE Aortic Root Diameter MM 3.1 cm MV E Point Septal Separation 0.5 cm AV Cusp Separation MM 2.1 cm DOPPLER AV Peak Velocity 138.7 cm/s AV Peak Gradient 7.7 mmHg MV Area PHT 3.0 cm??? Mitral E Point Velocity 65.9 cm/s Mitral A Point Velocity 83.6 cm/s Mitral E to A Ratio 0.8 MV Deceleration Time 250.5 ms FINDINGS Left Ventricle Left ventricular ejection fraction is estimated at 50 %. Left ventricular cavity size normal. Mildly increased septal wall thickness. Mildly increased posterior wall thickness. No obvious regional wall motion abnormalities. Right Ventricle Normal right ventricular size. Unable to estimate the right ventricular systolic pressure. Right Atrium Normal right atrial size. Negative agitated saline bubble study for right to left shunt. Left Atrium Normal left atrial size. Mitral Valve Structurally normal mitral valve. No mitral stenosis, regurgitation or prolapse. Aortic Valve Trileaflet aortic valve. Thickened aortic valve without stenosis. Tricuspid Valve Structurally normal tricuspid valve. No tricuspid regurgitation. Pulmonic Valve Pulmonic valve not well visualized. Pericardium No pericardial effusion. Aorta Normal size aortic root and proximal ascending aorta. CONCLUSIONS LV size is normal ejection fraction is in the low end of normal no wall motion abnormality. No significant abnormality on the Doppler exam. Mild mitral annular calcification. Aortic valve sclerosis mild. No pericardial effusion. Bubble study was negative for shunt Previewed by: Dr. Josefina Ray MD (Electronically Signed) Final Date: 30 January 2024 10:08
[2024-01-30] MEDS ORDERED: ALBUTEROL NEBULIZED 2.5 MG/3 ML INHALATION PRN (12:40)
[2024-01-30] MEDS ORDERED: SENNOSIDES 8.6 MG TAB PO PRN (12:40)
[2024-01-30] MEDS ORDERED: IPRATROPIUM-ALBUTEROL 3 ML NEB INHALATION SCH (13:00)
--- NOTE | 2024-01-30 16:19 | P.PN ---
Subjective Progress Note Date: 01/30/24 I am following-up with patient and states is doing well and denies any new neurological issues. Per the nurse she cannot have MRI Brain today since no availability and was told unlikely tomorrow. Objective - Vital Signs Vital signs: Vital Signs Temp 97.9 F 01/30/24 12:00 Pulse 88 01/30/24 14:51 Resp 18 01/30/24 12:00 BP 116/75 01/30/24 12:00 Pulse Ox 92 L 01/30/24 12:00 FiO2 Intake & Output 01/29/24 01/30/24 01/30/24 18:59 06:59 18:59 Intake Total 480 808 Balance 480 808 Weight 92.986 kg Intake: Oral 480 808 Other: Voiding Method Toilet # Voids 2 2 - Exam GENERAL: The patient is sitting in a recliner chair and is not in acute distress. NEUROLOGICAL: Higher mental function: The patient is awake, alert, oriented to self, place and time. Patient is following commands. Has Motor aphasia. Intact repetition. No neglect. Cranial nerves: The pupils are round, equal and reactive to light and accommodation. Visual garcia are full to confrontation throughout. Extraocular movement is intact no nystagmus is noted. Facial sensation is normal to touch throughout. The facial strength is normal throughout. Hearing is normal bilaterally to hand rub. Tongue is midline and moved [id number] without any difficulty. No dysarthria is noted. Shoulder shrug is normal bilaterally. Motor: The strength is 5 over 5 throughout. Normal tone and bulk. Cerebellum: Normal finger to nose heel to vernon bilaterally. Sensation: Sensation is normal to touch throughout. Reflexes (right/left): 2+ throughout. Plantars are downgoing bilaterally. Some of the workup during this hospital visit consisted of: CBC with differential and Chemstrip panel is unremarkable. Lipid panel: TG 91, cholestrol 225, LDL [address] of the head is reported as no acute bleed or mass effect. Finding consistent with a small to moderate acute to subacute posterior left frontal infarct. I personally reviewed the imaging and I felt was more subacute. CTA head and neck was reported as there is evidence of mild atherosclerotic disease involving the carotid bifurcation but no significant stenosis. No occlusive disease or sizable aneurysm sac or vascular malformation intracranially. EKG is reported as sinus rhythm. 2D echo: it is reported as left ventricle size is normal ejection fraction in the low end of normal. Normal wall motion abnormality. No significant abnormality of Doppler exam. Mild mitral annular calcification. Aortic valve sclerosis mild. Bubble study was negative for shunt. - Labs CBC & Chem 7: 01/28/24 17:40 01/28/24 17:40 Assessment and Plan Assessment: this is a 58-year-old woman who presents because of the speech difficulties since this Sunday. She is having word finding difficulty, and some of her words and searching for the words per the daughter. Acute Broca aphasia. CT head shows subacute hypodensity over the left frontal. No IV thrombolytic since outside window and risk outweigh benefit. Unknown exact etiology. History of TIA in her 30's year old. history of COPD/emphysema Underlying history of hypertension Anxiety History of UTI Ex-smoke and stopped 2 years ago Plan: patient started on aspirin 325 daily by the ED team. I also added Plavix 75 mg daily. Patient was not on any antiplatelets prior to this. Recommend dual antiplatelets for 21 days and after 21 days stop Plavix but continue ASA indefinitely. She is on the Lipitor 80 mg daily by the primary team. From neurological perspective can be on lower dose of 40mg daily. Pending MRI the brain. Daughter states she does not want to wait for the MRI since likely to be completed Sunday and will try to have it address as outpatient. Recommend an event monitor for 30 days. Continue her checks Cardiac monitoring PT OT and PAYMENT ANALYST are consulted Highly recommend an outpatient hypercoagulable workup especially since she had the TIA at a young age. Follow-up with hematology as outpatient. For DVT prophylaxis On subcu heparin 5000 units every 12 hours Upon discharge recommend the patient the follow-up with a neurologist as outpatient within 1-2 weeks The plan discussed with the patient and her daughters at bedside. Otherwise no additional neurological work-up. Time with Patient: Less than 30
[2024-01-30] MEDS: ATORVASTATIN 80 MG TAB PO SCH (20:22)
[2024-01-30] MEDS: SYMBICORT 160-4.5 MCG INHALER INHALATION SCH (20:56)
--- NOTE | 2024-01-30 21:30 | PN ---
PROGRESS NOTE DATE OF SERVICE: 01/30/2024 CHIEF COMPLAINT: CVA. HISTORY OF PRESENT ILLNESS: This lady is doing well. She is not having any difficulty now. She has no visual problems, diplopia, trouble talking, lateralizing signs or symptoms, etc. PHYSICAL EXAMINATION: CHEST: Clear. CARDIAC: Normal. NECK: Carotids are normal. NEUROLOGICAL: She is intact. IMPRESSION: 1. Left-frontal cerebrovascular accident. 2. Chronic obstructive pulmonary disease. PLAN: Progress activity and probably home tomorrow. MMODL / IJN: [id number] /
[2024-01-31 01:38] VITALS: RESP 16
[2024-01-31] MEDS: hydroCHLOROthiazide 25 MG TAB PO SCH (08:26)
[2024-01-31 10:51] VITALS: BP 124/71; PULSE 82; TEMP 97.8
--- NOTE | 2024-01-31 13:30 | P.PN ---
Subjective Progress Note Date: 01/31/24 I am following-up with patient and states is about the same. Denies of any new neurological issues. Objective - Vital Signs Vital signs: Vital Signs Temp 97.8 F 01/31/24 08:00 Pulse 81 01/31/24 09:21 Resp 16 01/31/24 08:00 BP 124/71 01/31/24 08:00 Pulse Ox 95 01/31/24 09:10 FiO2 Intake & Output 01/30/24 01/31/24 01/31/24 18:59 06:59 18:59 Intake Total 1048 720 240 Balance 1048 720 240 Intake: Oral 1048 720 240 Other: Voiding Method Toilet Toilet # Voids 2 2 2 - Exam GENERAL: The patient is sitting in a recliner chair and is not in acute distress. NEUROLOGICAL: Higher mental function: The patient is awake, alert, oriented to self, place and time. Patient is following commands. Has Motor aphasia. Intact repetition. No neglect. Cranial nerves: The pupils are round, equal and reactive to light and accommodation. Visual garcia are full to confrontation throughout. Extraocular movement is intact no nystagmus is noted. Facial sensation is normal to touch throughout. The facial strength is normal throughout. Hearing is normal bilaterally to hand rub. Tongue is midline and moved [id number] without any difficulty. No dysarthria is noted. Shoulder shrug is normal bilaterally. Motor: The strength is 5 over 5 throughout. Normal tone and bulk. Cerebellum: Normal finger to nose heel to vernon bilaterally. Sensation: Sensation is normal to touch throughout. Reflexes (right/left): 2+ throughout. Plantars are downgoing bilaterally. Some of the workup during this hospital visit consisted of: CBC with differential and Chemstrip panel is unremarkable. Lipid panel: TG 91, cholestrol 225, LDL [address] of the head is reported as no acute bleed or mass effect. Finding consistent with a small to moderate acute to subacute posterior left frontal infarct. I personally reviewed the imaging and I felt was more subacute. CTA head and neck was reported as there is evidence of mild atherosclerotic disease involving the carotid bifurcation but no significant stenosis. No occlusive disease or sizable aneurysm sac or vascular malformation intracranially. EKG is reported as sinus rhythm. 2D echo: it is reported as left ventricle size is normal ejection fraction in the low end of normal. Normal wall motion abnormality. No significant abnormality of Doppler exam. Mild mitral annular calcification. Aortic valve sclerosis mild. Bubble study was negative for shunt. - Labs CBC & Chem 7: 01/28/24 17:40 01/28/24 17:40 Assessment and Plan Assessment: this is a 58-year-old woman who presents because of the speech difficulties since this Sunday. She is having word finding difficulty, and some of her words and searching for the words per the daughter. Acute Broca aphasia. CT head shows subacute hypodensity over the left frontal. No IV thrombolytic since outside window and risk outweigh benefit. Unknown exact etiology. History of TIA in her 30's year old. history of COPD/emphysema Underlying history of hypertension Anxiety History of UTI Ex-smoke and stopped 2 years ago Plan: patient started on aspirin 325 daily by the ED team. I also added Plavix 75 mg daily. Patient was not on any antiplatelets prior to this. Recommend dual antiplatelets for 21 days and after 21 days stop Plavix but continue ASA indefinitely. She is on the Lipitor 80 mg daily by the primary team. From neurological perspective can be on lower dose of 40mg daily. Pending MRI the brain. Daughter states she does not want to wait for the MRI since likely to be completed Sunday and will try to have it address as outpatient. Recommend an event monitor for 30 days. Continue her checks Cardiac monitoring PT OT and PRINTING TECHNICIAN are consulted Highly recommend an outpatient hypercoagulable workup especially since she had the TIA at a young age. Follow-up with hematology as outpatient. For DVT prophylaxis On subcu heparin 5000 units every 12 hours Upon discharge recommend the patient the follow-up with a neurologist as outpatient within 1-2 weeks The plan discussed with the patient and her daughters at bedside. Otherwise no additional neurological work-up. Time with Patient: Less than 30
--- NOTE | 2024-02-01 00:39 | HP ---
HISTORY AND PHYSICAL CHIEF COMPLAINT: Trouble speaking. HISTORY OF PRESENT ILLNESS: This is a 58-year-old female, who was in emergency room at [facility] with some difficulty speaking without any other focal signs or symptoms. She is on numerous psych medications. At that time, her CT was negative and there was a question as to whether or not this was neurologic or related to her psychiatric issues and possibly drug interactions. She signed out of the ER. She came to this emergency room 2 days later with some of the same symptoms, but she had been gradually improving. She denies any headaches, trauma, change in vision or hearing, etc. and she has had no significant lateralizing symptoms. REVIEW OF SYSTEMS: Otherwise normal. She has had no palpitations, chest pain, etc. Past medical history, family history and personal and social histories are all otherwise unremarkable and noncontributory. She does have COPD and she is on oxygen at home. PHYSICAL EXAMINATION: VITAL SIGNS: Normal. HEAD, EARS, EYES, NOSE, MOUTH, AND THROAT: Normal. NECK: Carotids are normal. CHEST: Clear. CARDIAC: Demonstrates sinus rhythm with no murmurs or extra sounds. There is no splitting of the second sound. ABDOMEN: Soft and nontender. EXTREMITIES: Normal. NEUROLOGIC: She seemed to be intact. She was not having any significant difficulty with speech and she had no cranial nerve or sensory motor findings. ASSESSMENT: She is admitted to the hospital with diagnoses of: 1. Left frontal cerebrovascular accident. 2. Chronic obstructive pulmonary disease. 3. Previous cerebrovascular accident. PLAN: 1. Bedrest. 2. IV fluids. 3. Frequent monitoring of her neurologic status and vital signs. 4. PT and OT. 5. Echocardiogram. MMODL / IJN: [id number] /
--- NOTE | 2024-02-01 00:51 | DS ---
DISCHARGE SUMMARY CHIEF COMPLAINT: Difficulty speaking. HISTORY OF PRESENT ILLNESS AND PHYSICAL EXAMINATION: Details of this lady's history and physical can be found in the initial workup. LABORATORY STUDIES: While she was in the hospital, she had laboratory studies, details of which can be found in the laboratory section of her chart. COURSE IN THE HOSPITAL: After admission, she was placed on bedrest, started on intravenous fluids and frequent monitoring of her neurologic status and vital signs. She essentially had no significant deficits. Contrast study revealed a left frontal CVA. She was started on aspirin and Plavix. She did well and it was felt she could go home without any deficits on the and will be followed up in the office in several days. FINAL DIAGNOSES: 1. Left frontal cerebrovascular accident. 2. Chronic obstructive pulmonary disease. OPERATIONS: None. CONSULTATIONS: None. She is improved. MMODL / CHELSEYN: [id number] /
--- NOTE | 2024-02-01 13:30 | PN ---
PROGRESS NOTE DATE OF SERVICE: 01/29/2024 CHIEF COMPLAINT: Difficulty speaking. HISTORY OF PRESENT ILLNESS: This lady is doing a lot better. Her speech is improved quite a bit. She has no headache or any other focal neurologic or cranial nerve deficits. PHYSICAL EXAMINATION: HEENT: Head, ears, eyes, nose, mouth, and throat are normal. CHEST: Clear. CARDIAC: Normal. No murmur or extra sound. NECK: Carotids normal. NEUROLOGICAL: She seems to be completely intact. IMPRESSION: Left frontal CVA. PLAN: 1. Echocardiogram. 2. Add Plavix 75 mg once a day. 3. PT and OT. 4. Lipid profile, maximize statin. MMODL / IJN: [id number] /
== END 2024-01-31 14:26 | disposition home or self-care (01) | DRG 45 ==
LOC: EC 16:13 → 3SCARD 20:06
PROVIDERS: ADMIT Family Medicine; ATTEND Family Medicine
DX: I63.89 Other cerebral infarction (principal); I10 Essential (primary) hypertension; J43.9 Emphysema, unspecified; R47.01 Aphasia; R29.723 NIHSS score 23; F41.9 Anxiety disorder, unspecified; Z86.73 Personal history of transient ischemic attack (TIA), and cerebral infarction without residual deficits; Z79.899 Other long term (current) drug therapy; Z87.440 Personal history of urinary (tract) infections; K21.9 Gastro-esophageal reflux disease without esophagitis; Z87.891 Personal history of nicotine dependence; Z86.14 Personal history of Methicillin resistant Staphylococcus aureus infection; Z28.310 Unvaccinated for COVID-19; Z28.21 Immunization not carried out because of patient refusal; Z88.1 Allergy status to other antibiotic agents; Z88.8 Allergy status to other drugs, medicaments and biological substances
CPT/HCPCS: 36415; 70450; 70496; 70498; 80048; 80061; 85025; 85610; 85730; 93005; 93270; 93306; 94640; 94760; 96372; 99285

== ENCOUNTER 2024-05-07 21:26 | Observation (INO) | payer OTHER ==
--- NOTE | 2024-05-07 22:10 | ED ---
Neuro HPI - General Chief Complaint: Neuro Symptoms/Deficit Stated Complaint: Headache arm pain Time Seen by Provider: 05/07/24 21:59 Source: patient, RN notes reviewed, old records reviewed Mode of arrival: wheelchair Limitations: no limitations - History of Present Illness Is the patient presenting with stroke symptoms?: Yes -: days(s) (3) Initial Comments: This is a 58-year-old female to the ER for evaluation of CVA. Patient presents with history of CVA, no persistent symptoms so patient does admit to that being a TIA as symptoms are resolved. Patient has had these neurological symptoms currently going on for 3 days being some numbness tingling and weakness of the left arm and just not feeling normal. Concern for recurrent CVA patient also complains of headache and weakness no recent trauma fevers cough or congestion no chest pain Location: left arm Place: home Severity: mild Quality: weak, numb, tingling Improves With: none Worsens With: none Context: gradual onset - Related Data Home Medications: Home Medications Medication Instructions Recorded Confirmed Gabapentin [Neurontin] 300 mg PO TID@0800,1600,2200 12/28/18 05/08/24 QUEtiapine [SEROquel] 50 mg PO HS@2300 12/28/18 05/08/24 cloNIDine HCL [Catapres] 0.1 mg PO HS@2300 12/28/18 05/08/24 Escitalopram [Lexapro] 20 mg PO DAILY@1000 03/28/23 05/08/24 Melatonin 5 mg PO HS@2230 03/28/23 05/08/24 Pantoprazole Sodium [Protonix] 20 mg PO HS@2200 03/28/23 05/08/24 clonazePAM [KlonoPIN] 0.5 mg PO BID@0900,1400 03/28/23 05/08/24 Budesonide/Glycopyr/Formoterol 1 puff INHALATION RT-BID 01/28/24 05/08/24 [Breztri Aerosphere Inhaler] Ergocalciferol (Vitamin D2) 1,250 mcg PO QMONTHLY 01/28/24 05/08/24 [Drisdol (50,000 Iu)] Ipratropium-Albuterol Nebulize 3 ml INHALATION RT-QID 01/28/24 05/08/24 [Duoneb 0.5 mg-3 mg/3 ml Soln] Montelukast Sodium 10 mg PO HS@2200 01/28/24 05/08/24 Aspirin EC [Ecotrin] 325 mg PO DAILY@0800 05/08/24 05/08/24 Atorvastatin [Lipitor] 80 mg PO HS@2230 05/08/24 05/08/24 Fexofenadine HCl [Elma Allergy] 180 mg PO DAILY@0800 05/08/24 05/08/24 Semaglutide [Wegovy] 0.5 mg SQ HERNANDEZ 05/08/24 05/08/24 Allergies/Adverse Reactions: Allergies Allergy/AdvReac Type Severity Reaction Status Date / Time ciprofloxacin [From Cipro] AdvReac Nausea & Verified 05/08/24 07:25 Vomiting & Diarrhea prednisone AdvReac ANXIETY Verified 05/08/24 07:25 Review of Systems ROS Statement: Those systems with pertinent positive or pertinent negative responses have been documented in the HPI. ROS Other: All systems not noted in ROS Statement are negative. General Exam Limitations: no limitations General appearance: alert, in no apparent distress Head exam: Present: atraumatic, normocephalic, normal inspection Eye exam: Present: normal appearance, PERRL, EOMI. Absent: scleral icterus, conjunctival injection, periorbital swelling ENT exam: Present: normal exam, mucous membranes moist Neck exam: Present: normal inspection. Absent: tenderness, meningismus, lymphadenopathy Respiratory exam: Present: normal lung sounds bilaterally. Absent: respiratory distress, wheezes, rales, rhonchi, stridor Cardiovascular Exam: Present: regular rate, normal rhythm, normal heart sounds. Absent: systolic murmur, diastolic murmur, rubs, gallop, clicks GI/Abdominal exam: Present: soft, normal bowel sounds. Absent: distended, tenderness, guarding, rebound, rigid Extremities exam: Present: normal inspection, full ROM, normal capillary refill. Absent: tenderness, pedal edema, joint swelling, calf tenderness Back exam: Present: normal inspection Neurological exam: Present: alert, oriented X3, CN II-XII intact Psychiatric exam: Present: normal affect, normal mood Skin exam: Present: warm, dry, intact, normal color. Absent: rash Stroke MDM - Lab Data Result diagrams: 05/07/24 22:31 05/07/24 22:31 Lab Results 05/07/24 05/07/24 05/07/24 Range/Units 22:31 22:31 22:31 WBC 9.1 (3.8-10.6) k/uL RBC 4.56 (3.80-5.40) m/uL Hgb 12.9 (11.4-16.0) gm/dL Hct 40.4 (34.0-46.0) % MCV 88.5 (80.0-100.0) fL MCH 28.2 (25.0-35.0) pg MCHC 31.9 (31.0-37.0) g/dL RDW 13.7 (11.5-15.5) % Plt Count 263 (150-450) k/uL MPV 8.1 Neutrophils % 61 % Lymphocytes % 25 % Monocytes % 4 % Eosinophils % 8 % Basophils % 1 % Neutrophils # 5.6 (1.3-7.7) k/uL Lymphocytes # 2.3 (1.0-4.8) k/uL Monocytes # 0.3 (0-1.0) k/uL Eosinophils # 0.7 (0-0.7) k/uL Basophils # 0.1 (0-0.2) k/uL PT 10.3 (10.0-12.5) sec INR 0.9 (<1.2) APTT 22.8 (22.0-30.0) sec Sodium 141 (137-145) mmol/L Potassium 4.0 (3.5-5.1) mmol/L Chloride 113 H (98-107) mmol/L Carbon Dioxide 23 (22-30) mmol/L Anion Gap 5 mmol/L BUN 13 (7-17) mg/dL Creatinine 0.59 (0.52-1.04) mg/dL Est GFR (CKD-EPI)AfAm >90 (>60 ml/min/1.73 sqM) Est GFR (CKD-EPI)NonAf >90 (>60 ml/min/1.73 sqM) Glucose 124 H (74-99) mg/dL Calcium 9.0 (8.4-10.2) mg/dL Total Bilirubin 0.7 (0.2-1.3) mg/dL AST 30 (14-36) U/L ALT 20 (4-34) U/L Alkaline Phosphatase 76 (38-126) U/L Creatine Kinase 60 (30-135) U/L Troponin I (0.000-0.034) ng/mL Total Protein 6.4 (6.3-8.2) g/dL Albumin 3.8 (3.5-5.0) g/dL Triglycerides (0.00-149.00) mg/dL Cholesterol (0.00-200.00) mg/dL LDL Cholesterol, Calc (0.0-131.0) mg/dL VLDL Cholesterol, Calc (5.00-40.00) mg/dL HDL Cholesterol (40.00-60.00) mg/dL Cholesterol/HDL Ratio Ratio 05/07/24 05/07/24 Range/Units 22:31 22:31 WBC (3.8-10.6) k/uL RBC (3.80-5.40) m/uL Hgb (11.4-16.0) gm/dL Hct (34.0-46.0) % MCV (80.0-100.0) fL MCH (25.0-35.0) pg MCHC (31.0-37.0) g/dL RDW (11.5-15.5) % Plt Count (150-450) k/uL MPV Neutrophils % % Lymphocytes % % Monocytes % % Eosinophils % % Basophils % % Neutrophils # (1.3-7.7) k/uL Lymphocytes # (1.0-4.8) k/uL Monocytes # (0-1.0) k/uL Eosinophils # (0-0.7) k/uL Basophils # (0-0.2) k/uL PT (10.0-12.5) sec INR (<1.2) APTT (22.0-30.0) sec Sodium (137-145) mmol/L Potassium (3.5-5.1) mmol/L Chloride (98-107) mmol/L Carbon Dioxide (22-30) mmol/L Anion Gap mmol/L BUN (7-17) mg/dL Creatinine (0.52-1.04) mg/dL Est GFR (CKD-EPI)AfAm (>60 ml/min/1.73 sqM) Est GFR (CKD-EPI)NonAf (>60 ml/min/1.73 sqM) Glucose (74-99) mg/dL Calcium (8.4-10.2) mg/dL Total Bilirubin (0.2-1.3) mg/dL AST (14-36) U/L ALT (4-34) U/L Alkaline Phosphatase (38-126) U/L Creatine Kinase (30-135) U/L Troponin I <0.012 (0.000-0.034) ng/mL Total Protein (6.3-8.2) g/dL Albumin (3.5-5.0) g/dL Triglycerides 93.20 (0.00-149.00) mg/dL Cholesterol 194.00 (0.00-200.00) mg/dL LDL Cholesterol, Calc 121.4 (0.0-131.0) mg/dL VLDL Cholesterol, Calc 18.64 (5.00-40.00) mg/dL HDL Cholesterol 54.00 (40.00-60.00) mg/dL Cholesterol/HDL Ratio 3.59 Ratio - NIH Stroke Scale 1a. Level of Consciousness: (0) alert 1b. LOC Questions: (0) answers correctly 1c. LOC Commands: (0) performs tasks correctly 2. Best Gaze: (0) normal 3. Visual: (0) no visual loss 4. Facial Palsy: (0) normal symmetrical movement 5a. Motor Arm Left: (1) drift 5b. Motor Arm Right: (0) no drift 6a. Motor Leg Left: (0) no drift 6b. Motor Leg Right: (0) no drift 7. Limb Ataxia: (0) absent 8. Sensory: (0) normal 9. Best Language: (0) no aphasia 10. Dysarthria: (0) normal 11. Extinction/Inattention: (0) no abnormality - Thrombolytic Inclusion/Exclusion Thrombolytic Exclusion Criteria: Symptom Onset > 4.5 Hours (3 3 days) - Medical Decision Making 58 female will admit for CVA symptoms, left arm weakness and pain. TIA. Patient has no other significant symptoms and no improvement of symptoms over the last 3 days - Radiology Data Radiology results: report reviewed (Brain CT angio chest negative for acute disease), image reviewed - EKG Data -: EKG Interpreted by Me (EKG is sinus 75 AK 168 QRS 90 QTc 424) Past Medical History Past Medical History: COPD, GERD/Reflux Additional Past Medical History / Comment(s): ON O2 2L/NC ATC. EMPHYSEMA History of Any Multi-Drug Resistant Organisms: MRSA Date of last positivie culture/infection: 10/16/16 MDRO Source:: Urine Past Surgical History: No Surgical Hx Reported Additional Past Surgical History / Comment(s): URETER SX 5 YRS AGO. COLONOSCOPY. HAD SOME NASAL/THROAT LESIONS REMOVED BY ENT Past Anesthesia/Blood Transfusion Reactions: No Reported Reaction Past Psychological History: Anxiety Smoking Status: Never smoker Past Alcohol Use History: None Reported Past Drug Use History: None Reported - Past Family History Mother Family Medical History: No Reported History Course Vital Signs 05/07/24 05/07/24 05/08/24 21:43 23:45 02:00 Temperature 97.8 F Pulse Rate 73 75 60 Pulse Rate [ Right Pulse Oximetery] Respiratory 20 16 18 Rate Blood Pressure 135/79 100/72 134/84 Blood Pressure [Right Arm] O2 Sat by Pulse 93 L 97 97 Oximetry 05/08/24 05/08/24 05/08/24 04:00 06:00 07:44 Temperature 97.6 F Pulse Rate 62 60 61 Pulse Rate [ Right Pulse Oximetery] Respiratory 18 18 18 Rate Blood Pressure 127/69 138/100 155/89 Blood Pressure [Right Arm] O2 Sat by Pulse 98 97 97 Oximetry 05/08/24 08:00 Temperature 97.5 F L Pulse Rate Pulse Rate [ 66 Right Pulse Oximetery] Respiratory 18 Rate Blood Pressure Blood Pressure 143/72 [Right Arm] O2 Sat by Pulse 97 Oximetry - Reevaluation(s) Reevaluation #1: 05/07/24 23:13 Medical records reviewed Reevaluation #2: 05/07/24 23:13 Patient symptoms unchanged Reevaluation #3: 05/07/24 23:13 Patient informed of results questions answered Reevaluation #4: Was pt. sent in by a medical professional or institution (, PA, TOBACCO DRYING MACHINE OPERATOR, urgent care, hospital, or group home...) When possible be specific @ -no Did you speak to anyone other than the patient for history (EMS, parent, family, police, friend...)? What history was obtained from this source @ -no Did you review nursing and triage notes (agree or disagree)? Why? @ -agree Are old charts reviewed (outside hosp., previous admission, EMS record, old EKG, old radiological studies, urgent care reports/EKG's, group home records)? Report findings @ -yes Differential Diagnosis (chest pain, altered mental status, abdominal pain women, abdominal pain men, vaginal bleeding, weakness, fever, dyspnea, syncope, headache, dizziness, GI bleed, back pain, seizure, CVA, palpatations, mental health, musculoskeletal)? @ -prior EKG interpreted by me (3pts min.). @ -yes X-rays interpreted by me (1pt min.). @ -no CT interpreted by me (1pt min.). @ -Yes negative for acute disease U/S interpreted by me (1pt. min.). @ -no What testing was considered but not performed or refused? (CT, X-rays, U/S, lab s)? Why? @ -none What meds were considered but not given or refused? Why? @ -none Did you discuss the management of the patient with other professionals (professionals i.e. , PA, TOBACCO DRYING MACHINE OPERATOR, lab, RT, psych nurse, geriatric social work professor, children's tutor, teacher, airframe technical officer, community case manager)? Give summary @ -no Was smoking cessation discussed for >3mins.? @ -no Was critical care preformed (if so, how long)? @ -no Were there social determinants of health that impacted care today? How? (Homelessness, low income, unemployed, alcoholism, drug addiction, transportation, low edu. Level, literacy, decrease access to med. care, retirement, rehab)? @ -none Was there de-escalation of care discussed even if they declined (Discuss DNR or withdrawal of care, Hospice)? DNR status @ -no What co-morbidities impacted this encounter? (DM, HTN, Smoking, COPD, CAD, Cancer, CVA, ARF, Chemo, Hep., AIDS, mental health diagnosis, sleep apnea, morbid obesity)? @ -none Was patient admitted / discharged? Hospital course, mention meds given and route, prescriptions, significant lab abnormalities, going to OR and other pertinent info. @ - 58 female will admit for CVA symptoms, left arm weakness and pain. TIA. Patient has no other significant symptoms and no improvement of symptoms over the last 3 days Patient was admitted for TIA and CVA CVA Undiagnosed new problem with uncertain prognosis? @ -no Drug Therapy requiring intensive monitoring for toxicity (Heparin, Nitro, Insulin, Cardizem)? @ -no Were any procedures done? @ -no Diagnosis/symptom? @ - Acute, or Chronic, or Acute on Chronic? @ -Acute Uncomplicated (without systemic symptoms) or Complicated (systemic symptoms)? @ -Complicated Side effects of treatment? @ -no Exacerbation, Progression, or Severe Exacerbation? @ -exacerbation Poses a threat to life or bodily function? How? (Chest pain, USA, SC, pneumonia, PE, COPD, DKA, ARF, appy, cholecystitis, CVA, Diverticulitis, Homicidal, Suicidal, threat to staff... and all critical care pts) @ -yes Reevaluation #5: Differential CVA Ischemic stroke, hemorrhagic stroke, brain tumor, atypical migraine, Wernicke's encephalopathy, seizure, multiple sclerosis, meningitis, encephalitis, hypoglycemia, Guillain-Cook, electrolytes disturbance, myasthenia gravis.... This is not meant to be an all-inclusive list - Consultations Consultation #1: Spoke with Dr. Gasca who agrees to admit this patient Critical Care Time Critical Care Time: Yes Total Critical Care Time: 31 Disposition Clinical Impression: Cerebrovascular accident (CVA), Transient cerebral ischemia Disposition: ADMITTED IP TO THIS HOSP Condition: Fair Is patient prescribed a controlled substance at d/c from ED?: No
[2024-05-07 22:41] LABS: Basophils # (A) 0.1 k/uL (0-0.2); Basophils % (A) 1 %; Eosinophils # (A) 0.7 k/uL (0-0.7); Eosinophils % (A) 8 %; HCT 40.4 % (34.0-46.0); HGB 12.9 gm/dL (11.4-16.0); Lymphocytes # (A) 2.3 k/uL (1.0-4.8); Lymphocytes % (A) 25 %; MCH 28.2 pg (25.0-35.0); MCHC 31.9 g/dL (31.0-37.0); MCV 88.5 fL (80.0-100.0); Mean Platelet Volume 8.1; Monocytes # (A) 0.3 k/uL (0-1.0); Monocytes % (A) 4 %; Neutrophils # (A) 5.6 k/uL (1.3-7.7); Neutrophils % (A) 61 %; Platelet Count 263 k/uL (150-450); RBC 4.56 m/uL (3.80-5.40); RDW 13.7 % (11.5-15.5); WBC 9.1 k/uL (3.8-10.6)
[2024-05-07 22:53] LABS: INR 0.9 (<1.2); Partial Thromboplastin Time 22.8 sec (22.0-30.0); Prothrombin Time 10.3 sec (10.0-12.5)
[2024-05-07 22:54] LABS: ALT 20 U/L (4-34); African American GFR (CKD) >90 (>60 ml/min/1.73 sqM); Albumin 3.8 g/dL (3.5-5.0); Anion Gap 5 mmol/L; Blood Urea Nitrogen 13 mg/dL (7-17); Carbon Dioxide 23 mmol/L (22-30); Chloride 113 mmol/L (98-107); Creatine Kinase 60 U/L (30-135); Glucose 124 mg/dL (74-99); Non-African American GFR(CKD) >90 (>60 ml/min/1.73 sqM); Sodium 141 mmol/L (137-145); Total Bilirubin 0.7 mg/dL (0.2-1.3); Total Protein 6.4 g/dL (6.3-8.2)
[2024-05-07] MEDS: SODIUM CHLORIDE 0.9% 1,000 ML IV STA (23:11)
--- NOTE | 2024-05-07 23:13 | XR ---
EXAMINATION TYPE: XR chest 1V portable DATE OF EXAM: 05/07/2024 COMPARISON: CT chest October 23, 2023 HISTORY: Left arm pain/weakness for 3 days. TECHNIQUE: Single frontal view of the chest is obtained. FINDINGS: Overlying EKG leads are seen on current study. There is mild underlying emphysematous masters ge without suspicious focal air space opacity, pleural effusion, or pneumothorax seen. The cardiac s ilhouette size remains within normal limits. The osseous structures are intact. IMPRESSION: No acute cardiopulmonary process.
--- NOTE | 2024-05-07 23:15 | CT ---
EXAMINATION TYPE: CT brain wo con DATE OF EXAM: 05/07/2024 HISTORY: patient reports headache, left arm pain/weakness x3 days. hx stroke. Acute onset neuro defic it. CT DLP: 1180.2 mGycm. Automated Exposure Control for Dose Reduction was Utilized. TECHNIQUE: CT scan of the head is performed without contrast. COMPARISON: CT brain January 28, 2024. FINDINGS: There is no acute intracranial hemorrhage or midline shift identified. There is mild diff use ventricular and sulcal prominence redemonstrated. There is mild low-attenuation in the periventr icular white matter redemonstrated. Now old infarct left frontal lobe near axial image 33. The globe s are intact and the visualized sinuses are clear. IMPRESSION: No acute intracranial hemorrhage or midline shift. Now old infarct left frontal lobe. MRI noted more sensitive to evaluate for acute ischemia.
--- NOTE | 2024-05-07 23:24 | CT ---
EXAMINATION TYPE: CT angio head neck DATE OF EXAM: 05/07/2024 HISTORY: patient reports headache, left arm pain/weakness x3 days. hx stroke COMPARISON: Prior CTA had and neck January 28, 2024 CT DLP: 452.7 mGycm. Automated Exposure Control for Dose Reduction was Utilized. TECHNIQUE: CTA scan of the head and neck is performed with IV Contrast, patient injected with 65ml m L of Isovue 370, axial images are obtained, coronal and sagittal reformatted images are reviewed. 3D reconstructed images are created on an independent workstation and reviewed. FINDINGS: Carotid/Vascular Structures: Moderate peripheral plaque in the right brachiocephalic artery. No signi ficant stenosis and three-vessel origin. Moderate to severe mixed plaque involving the anterior dista l left common carotid artery without hemodynamically significant stenosis redemonstrated. Moderate pe ripheral calcified plaque at right carotid bulb extending into the proximal internal carotid artery w ithout hemodynamically significant stenosis is redemonstrated. Similar moderate peripheral plaque lef t carotid bulb extending into left internal carotid artery without hemodynamically significant stenos is is redemonstrated. External carotid arteries are patent bilaterally. [id number] distal calci fied plaque in the internal carotid arteries bilaterally. Patent anterior to indicating artery is red emonstrated. No large vessel occlusion or aneurysm in the anterior circulation. Persistent hypoplasti c or occluded distal right vertebral artery. Dominant left vertebral artery fills the basilar artery. No large vessel occlusion or aneurysm in the posterior circulation. Other: [id number] underlying emphysematous change is present. IMPRESSION: No significant stenosis in common or internal carotid arteries bilaterally. No large ves randell occlusion or aneurysm at level of the [place]. No significant change from most recent pr ior. NASCET criteria was used in interpretation of this exam?
[2024-05-07] MEDS: MORPHINE SULFATE 2 MG/ML SYRINGE IVP STA (23:41)
[2024-05-07] MEDS: ASPIRIN 325 MG TAB PO STA (23:41)
[2024-05-08 00:10] LABS: AST 30 U/L (14-36); Alkaline Phosphatase 76 U/L (38-126)
[2024-05-08 02:46] LABS: Appearance,Urine Clear (Clear); Bacteria,Urine Rare /hpf; Bilirubin,Urine Negative (Negative); Blood,Urine Negative (Negative); Color,Urine Light Yellow; Glucose,Urine (UA) Negative (Negative); Ketones,Urine Negative (Negative); Leukocyte Esterase,Urine Moderate (Negative); Mucus,Urine Rare /hpf; Nitrite,Urine Negative (Negative); Protein,Urine Negative (Negative); RBC,Urine 2 /hpf (0-5); Squamous Epithelial Cell,Urine 4 /hpf (0-4); Urobilinogen,Urine <2.0 mg/dL (<2.0); WBC,Urine 6 /hpf (0-5)
[2024-05-08 02:54] LABS: Specific Gravity,Urine >1.050 (1.001-1.035)
[2024-05-08] MEDS: ASPIRIN 325 MG TAB PO SCH (09:11)
[2024-05-08] MEDS: clonazePAM 0.5 MG TAB PO SCH ×2 (09:11→13:45)
[2024-05-08 10:42] LABS: Chol/HDL Ratio 3.59 Ratio; LDL Cholesterol,Calculated 121.4 mg/dL (0.0-131.0); VLDL Calculation 18.64 mg/dL (5.00-40.00)
[2024-05-08] MEDS: IPRATROPIUM 0.5 MG/2.5 ML NEBU INHALATION SCH (12:38)
[2024-05-08] MEDS: GABAPENTIN 300 MG CAP PO SCH (12:42)
[2024-05-08] MEDS: ESCITALOPRAM 20 MG TAB PO SCH (13:45)
--- NOTE | 2024-05-08 14:12 | P.CNNES ---
History of Present Illness Consult date: 05/08/24 Requesting physician: Farooq Schwartz Reason for Consult: tia History of Present Illness: This is a 58-year-old woman with history of stroke, COPD on home oxygen, hypertension, ex-smoker who presented emergency department because of bilateral arm pain with numbness tingling in the fingertip. Patient states that she is having neck pain feels the pain really radiates down but for the most part she is having pain and in the upper extremities with numbness tingling in the fingertip recently. She denies any head trauma any neck trauma. Denies any focal weakness. Denies any lower extremity weakness numbness. She is on aspirin 325 mg daily. I have seen the patient last on 01/31/2024 and she had acute Broca aphasia and a CT head showed subacute hypodensity in left frontal and I added Plavix in addition to her home aspirin. Patient did not have MRI as an inpatient since 1 as an outpatient to be addressed. According to the patient her primary care physician discontinue the Plavix since he did not feel like she needed according to the patient. She followed up with Dr. August as an outpatient for her neurological care. Please refer to my notes for further details from prior hospital visit. Some of the Workup during this hospital visit consisted of: CBC with differential is unremarkable Chemistry panel is unremarkable Lipid panel is triglycerides 93, cholesterol is 194, LDL is 121 and HDL is 54. Urinalysis is leukocyte Estrace is moderate, urine white blood cells 6 and urine bacteria is rare. There is questionable underlying urinary tract infection. CT of the head is reported as no acute intracranial hemorrhage or midline shift. Now old infarct in the left frontal lobe. Personally reviewed the the head and agree with the report CT angiography of the head and neck: Reported as no significant stenosis in the common or internal carotid artery bilaterally. No large vessel occlusion or aneurysm at the level of [place]. No significant change from the most recent prior. Review of Systems The positive and negative as per HPI. Past Medical History Past Medical History: COPD, GERD/Reflux Additional Past Medical History / Comment(s): ON O2 2L/NC ATC. EMPHYSEMA History of Any Multi-Drug Resistant Organisms: MRSA Date of last positivie culture/infection: 10/16/16 MDRO Source:: Urine Past Surgical History: No Surgical Hx Reported Additional Past Surgical History / Comment(s): URETER SX 5 YRS AGO. COLONOSCOPY. HAD SOME NASAL/THROAT LESIONS REMOVED BY ENT Past Anesthesia/Blood Transfusion Reactions: No Reported Reaction Past Psychological History: Anxiety Smoking Status: Never smoker Past Alcohol Use History: None Reported Past Drug Use History: None Reported - Past Family History Mother Family Medical History: No Reported History Medications and Allergies Home Medications Medication Instructions Recorded Confirmed Type Gabapentin [Neurontin] 300 mg PO TID@0800,1600,2200 12/28/18 05/08/24 History QUEtiapine [SEROquel] 50 mg PO HS@2300 12/28/18 05/08/24 History cloNIDine HCL [Catapres] 0.1 mg PO HS@2300 12/28/18 05/08/24 History Escitalopram [Lexapro] 20 mg PO DAILY@1000 03/28/23 05/08/24 History Melatonin 5 mg PO HS@222903/28/23 05/08/24 History Pantoprazole Sodium [Protonix] 20 mg PO HS@22003/28/23 05/08/24 History clonazePAM [KlonoPIN] 0.5 mg PO BID@0900,1400 03/28/23 05/08/24 History Budesonide/Glycopyr/Formoterol 1 puff INHALATION RT-BID 01/28/24 05/08/24 History [Breztri Aerosphere Inhaler] Ergocalciferol (Vitamin D2) 1,250 mcg PO QMONTHLY 01/28/24 05/08/24 History [Drisdol (50,000 Iu)] Ipratropium-Albuterol Nebulize 3 ml INHALATION RT-QID 01/28/24 05/08/24 History [Duoneb 0.5 mg-3 mg/3 ml Soln] Montelukast Sodium 10 mg PO HS@2200 01/28/24 05/08/24 History Aspirin EC [Ecotrin] 325 mg PO DAILY@0805/08/24 05/08/24 History Atorvastatin [Lipitor] 80 mg PO HS@222905/08/24 05/08/24 History Fexofenadine HCl [Elma Allergy] 180 mg PO DAILY@0800 05/08/24 05/08/24 History Semaglutide [Wegovy] 0.5 mg SQ HERNANDEZ 05/08/24 05/08/24 History Allergies Allergy/AdvReac Type Severity Reaction Status Date / Time ciprofloxacin [From Cipro] AdvReac Nausea & Verified 05/08/24 07:25 Vomiting & Diarrhea prednisone AdvReac ANXIETY Verified 05/08/24 07:25 Physical Examination - Vital Signs Vital Signs: Vital Signs Temp Pulse Pulse Resp BP BP Pulse Ox 05/08/24 12:50 66 05/08/24 12:38 64 96 05/08/24 08:00 97.5 F L 70 143/72 97 05/08/24 07:44 97.6 F 61 18 155/89 97 05/08/24 06:00 60 18 138/100 97 05/08/24 04:00 62 18 127/69 98 05/08/24 02:00 60 18 134/84 97 05/07/24 23:45 75 16 100/72 97 05/07/24 21:43 97.8 F 73 20 135/79 93 L Intake and Output 05/07/24 05/08/24 05/08/24 22:59 06:59 14:59 Other: Weight 93.894 kg GENERAL: The patient is lying in bed and is not in acute distress. NEUROLOGICAL: Higher mental function: The patient is awake, alert, oriented to self, place and time. Patient is following commands. No aphasia and no neglect. Cranial nerves: The pupils are round, equal and reactive to light and accommodation. Visual garcia are full to confrontation throughout. Extraocular movement is intact no nystagmus is noted. Facial sensation is normal to touch throughout. The facial strength is normal throughout. Hearing is normal bilaterally to hand rub. Tongue is midline and moved [id number] without any difficulty. No dysarthria is noted. Shoulder shrug is normal bilaterally. Motor: The strength is 5 over 5 throughout. Normal tone and bulk. Cerebellum: Normal finger to nose heel to [place] bilaterally. Sensation: Sensation is normal to touch throughout. Reflexes (right/left): 3+ uppers. Right patellar is 3+ while left is 1-2+. Ankles are 2+. Plantars are downgoing bilaterally. Results - Laboratory Findings CBC and BMP: 05/07/24 22:31 05/07/24 22:31 Abnormal Lab Findings: Abnormal Labs 05/07/24 05/08/24 22:31 02:25 Chloride 113 H Glucose 124 H Ur Specific [place] >1.050 H Ur Leukocyte Esterase Moderate H Urine WBC 6 H Urine Bacteria Rare H Urine Mucus Rare H Assessment and Plan Assessment: This is a 58-year-old woman who presents because of pain in the bilateral upper extremity with numbness tingling for bilateral fingertips as well as neck pain. On examination patient had brisk reflexes of the uppers Probable cervical myelopathy due to severe cervical stenosis. History of old stroke on 01/2024 over the left frontal and the patient has Broca aphasia History of COPD/emphysema on home nasal oxygen Underlying history of hypertension Anxiety History of UTI Ex-smoker Plan: I ordered MRI of the brain and the cervical spine. He is on home dose of aspirin 325 daily and Lipitor 80 mg nightly. If MRI of the cervical spine is abnormal then recommend consulting orthopedic surgery team Consider EMG with nerve conduction study bilateral upper extremities as an outpatient Defer the rest of the medical management to primary team Discharge recommend the patient to follow-up with her neurologist (Dr. Mustafa) as outpatient within 3-4 weeks. The plan is discussed with patient and her nurse. Thank you for the consultation. Time with Patient: Greater than 30
[2024-05-08] MEDS: SYMBICORT 160-4.5 MCG INHALER INHALATION SCH (21:45)
[2024-05-08] MEDS: MONTELUKAST 10 MG TAB PO SCH (22:00)
[2024-05-08] MEDS: ATORVASTATIN 80 MG TAB PO SCH (22:00)
[2024-05-08] MEDS: traMADol 50 MG TAB PO PRN (22:00)
[2024-05-08] MEDS: PANTOPRAZOLE 40 MG TABLET PO SCH (22:03)
[2024-05-08] MEDS: MELATONIN 5 MG TABLET PO SCH (23:01)
[2024-05-08] MEDS: cloNIDine HCL 0.1 MG TAB PO SCH (23:01)
[2024-05-08] MEDS: QUEtiapine 50 MG TAB PO SCH (23:01)
--- NOTE | 2024-05-09 00:01 | MR ---
EXAMINATION TYPE: MR brain wo/w [facility] DATE OF EXAM: 05/08/2024 COMPARISON: CT brain 05/07/2024 HISTORY: Arm weakness and numbness, nerve pain upper extremity CONTRAST: Performed utilizing 9.5 mL intravenous Gadavist gadolinium contrast. TECHNIQUE: Multiplanar, multiecho imaging on a 3.0 Rosey magnet is performed through the brain. Stud y is performed within 24 hours of arrival to the hospital. The craniovertebral junction is normal. The pituitary is normal. Diffusion-weighted imaging is performed. No abnormal hyperintensity is present to suggest an acute i ntracranial infarct or acute ischemic change. There is some hyperintensity along the left frontal lobe. Medially this may have some minimal signal on diffusion. Example image series 303 image 168. This appears hyperintense on inversion recovery izzy ghted sequences. No enhancement is evident in this region. Small subacute to old infarct at this loc ation could be considered. There are scattered punctate areas of hyperintensity on T2 and Inversion Recovery weighted sequences which are non-specific but can be related to chronic microvascular white matter ischemic changes. Ventricles and sulci are appropriate for the patient age. There small retention cyst within the posterior inferior right maxillary sinus. Mild fluid is within the left mastoid air cells with minimal fluid in the lateral right mastoid air cells. IMPRESSION: 1. Subacute or old cortical infarct along the left frontal lobe may be present. 2. Scattered chronic appearing punctate white matter ischemic type changes. EXAMINATION TYPE: MR brain wo/w [facility] DATE OF EXAM: 05/08/2024 COMPARISON: HISTORY: Arm weakness and numbness, nerve pain upper extremity CONTRAST: Performed utilizing 9.5 mL intravenous Gadavist gadolinium contrast. TECHNIQUE: Multiplanar multiecho imaging on a 3.0 Rosey magnet is performed through the cervical spin e. FINDINGS: The craniovertebral junction is normal. Vertebral body alignment is normal. C7-T1: No focal disc herniation or significant disc bulge is evident. No spinal canal stenosis or n eural foraminal stenosis is present. C6-7: No focal disc herniation or significant disc bulge is evident. No spinal canal stenosis or romi ral foraminal stenosis is present. C5-6: Mild disc bulge is present. This may have subligamentous extension beyond the C6 endplate. No A P spinal canal stenosis present. Neural foramen are patent. C4-5: No focal disc herniation or significant disc bulge is evident. No spinal canal stenosis or romi ral foraminal stenosis is present. C3-4: No focal disc herniation or significant disc bulge is evident. No spinal canal stenosis or romi ral foraminal stenosis is present. C2-3: No focal disc herniation or significant disc bulge is evident. No spinal canal stenosis or romi ral foraminal stenosis is present. IMPRESSION: 1. Small broad central subligamentous disc herniation C5-6 with mild anterior thecal sac compression.
[2024-05-09 06:36] VITALS: RESP 16
[2024-05-09] MEDS ORDERED: NON FORMULARY DRUG (Aspirin Ec 325 MG Tab) PO SCH (08:00)
[2024-05-09] MEDS ORDERED: methocarbamoL 500 MG TAB PO PRN (11:25)
--- NOTE | 2024-05-09 11:36 | P.PN ---
Subjective Progress Note Date: 05/09/24 I am following-up with patient and she feels she is doing better. She continues to have some posterior neck pain but somewhat better today compared to yesterday. Denies of any new neurological issues. Objective - Vital Signs Vital signs: Vital Signs Temp 98.0 F 05/09/24 07:51 Pulse 68 05/09/24 08:31 Resp 16 05/09/24 07:51 BP 121/76 05/09/24 07:51 Pulse Ox 95 05/09/24 08:19 FiO2 Intake & Output 05/08/24 05/09/24 05/09/24 18:59 06:59 18:59 Intake Total 240 10 180 Balance 240 10 180 Weight 94.6 kg Intake: IV 10 Invasive Line 1 10 Oral 240 180 Other: Voiding Method Toilet Toilet # Voids 1 2 - Exam GENERAL: The patient is lying in bed and is not in acute distress. NEUROLOGICAL: Higher mental function: The patient is awake, alert, oriented to self, place and time. Patient is following commands. No aphasia and no neglect. Cranial nerves: The pupils are round, equal and reactive to light and accommodation. Visual garcia are full to confrontation throughout. Extraocular movement is intact no nystagmus is noted. Facial sensation is normal to touch throughout. The facial strength is normal throughout. Hearing is normal bilaterally to hand rub. Tongue is midline and moved [id number] without any difficulty. No dysarthria is noted. Shoulder shrug is normal bilaterally. Motor: The strength is 5 over 5 throughout. Normal tone and bulk. Cerebellum: Normal finger to nose heel to vernon bilaterally. Sensation: Sensation is normal to touch throughout. Reflexes (right/left): 3+ uppers. Right patellar is 3+ while left is 1-2+. Ankles are 2+. Plantars are downgoing bilaterally. Some of the Workup during this hospital visit consisted of: CBC with differential is unremarkable Chemistry panel is unremarkable Lipid panel is triglycerides 93, cholesterol is 194, LDL is 121 and HDL is 54. Urinalysis is leukocyte Estrace is moderate, urine white blood cells 6 and urine bacteria is rare. There is questionable underlying urinary tract infection. CT of the head is reported as no acute intracranial hemorrhage or midline shift. Now old infarct in the left frontal lobe. Personally reviewed the the head and agree with the report CT angiography of the head and neck: Reported as no significant stenosis in the common or internal carotid artery bilaterally. No large vessel occlusion or aneurysm at the level of three affiliated of [place]. No significant change from the most recent prior. MRI Brain: It is reported as subacute or old cortical infarct along the left frontal lobe may be present. Scattered chronic punctate white matter ischemic type changes. I personally reviewed the MRI and left frontal infarct is old and is known from prior admission. MRI Cervical spine: Small broad central subligamentous disc herniation C5-C6 with mild anterior thecal sac compression. I personally reviewed it and it does appear there is cervical myelopathy or severe stenosis. - Labs CBC & Chem 7: 05/07/24 22:31 05/07/24 22:31 Assessment and Plan Assessment: This is a 58-year-old woman who presents because of pain in the bilateral upper extremity with numbness tingling for bilateral fingertips as well as neck pain. On examination patient had brisk reflexes of the uppers Cervical radiculopathy. On examination has brisk reflex in uppers concerning for myelopathy: But MRI C-spine reavealed Small broad central subligamentous disc herniation C5-C6 with mild anterior thecal sac compression. 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 Patient was notified about pursuing medical management for her neck issues first and agrees and does not want intervention at this time. She was notified to pursue with physical therapy for 4-6 weeks as outpatient. I prescribed Robaxin 500mg 1 tab bid PRN. Also recommend Lidocaine patch PRN. If she continues to have neck pain with radicular symptoms then recommend EMG with nerve conduction study bilateral upper extremities as an outpatient. Also recommend orthopedic evaluation. Defer the rest of the medical management to primary team Discharge recommend the patient to follow-up with her neurologist (Dr. Mustafa) as outpatient within 3-4 weeks. The plan is discussed with patient, her who is at bedside and her nurse. There is no further neurological work-up. Will sign off. Please reconsult if needed. Time with Patient: Less than 30
[2024-05-09 16:57] VITALS: BP 131/63; PULSE 66; TEMP 97.8
--- NOTE | 2024-05-11 21:40 | PN ---
PROGRESS NOTE DATE OF SERVICE: 05/08/2024 CHIEF COMPLAINT: Hypoesthesias and discomfort in the right and then the left arm. HISTORY OF PRESENT ILLNESS: This lady seems to be doing well. Studies have been negative so far. She does have a slight headache. She has no weakness in the upper extremities. PHYSICAL EXAMINATION: CHEST: Clear. CARDIAC: Normal. VITAL SIGNS: Normal. She seems to be stable. Otherwise, she is being evaluated by Neurology. IMPRESSION: 1. Hypoesthesias of the upper extremities. 2. Headache. 3. Chronic obstructive pulmonary disease. PLAN: Continue with further neurologic evaluation. MMODL / IJN: [id number] /
--- NOTE | 2024-05-11 23:46 | DS ---
DISCHARGE SUMMARY CHIEF COMPLAINT: Possible CVA or TIA. HISTORY OF PRESENT ILLNESS AND PHYSICAL EXAMINATION: Details of this lady's history and physical can be found in the initial workup. LABORATORY STUDIES: While she was in the hospital, she had laboratory studies, details of which can be found in the laboratory section of her chart. COURSE IN THE HOSPITAL: After admission, she was placed on bedrest and worked up neurologically. CTA and other neurologic studies failed to demonstrate any definite central nervous system issues or abnormalities. She was seen by Neurology. It was felt that this may be related to her cervical myofasciitis. Symptoms have improved and she was not having any difficulty and it was felt she could be discharged. She will be followed up in the office and a nerve conduction study and EMG of the upper extremities will be ordered as well as the MRI of the cervical spine. FINAL DIAGNOSIS: Hypoesthesias in the upper extremities. OPERATIONS: None. CONSULTATION: Neurology. She is improved. MMODL / IJN: [id number] /
--- NOTE | 2024-05-12 00:39 | HP ---
HISTORY AND PHYSICAL CHIEF COMPLAINT: Hypoesthesias in the right arm. HISTORY OF PRESENT ILLNESS: This is another admission for this 58-year-old female. She has had some neurologic issues in the past. She came to the emergency room this time because of hypoesthesias in the right arm. She states that they have moved in the left arm as well. She denies any headaches, neck injury, neck pain, signs or symptoms of neurologic disease in the lower extremities, etc. REVIEW OF SYSTEMS: Otherwise unremarkable. Past medical history, family history, personal and social histories reveal that she is allergic to steroids and Cipro. MEDICATIONS: She has been on, 1. Breztri. 2. Montelukast. 3. Clonidine. 4. Wegovy. 5. Pantoprazole. 6. Hydroxyzine. 7. Pepcid. 8. Hydrochlorothiazide. 9. Seroquel. 10.Albuterol. 11.Lexapro. 12.Klonopin. 13.Gabapentin. She does not smoke any longer, but did. PHYSICAL EXAMINATION: VITAL SIGNS: Normal. HEAD, EARS, EYES, NOSE, MOUTH AND THROAT: Normal. NECK: Neck veins were not distended. Thyroid was not enlarged. CHEST: Clear. CARDIAC: Normal. No murmurs or extra sounds. ABDOMEN: Soft, nontender. EXTREMITIES: Normal. NEUROLOGICAL: She seemed to be intact. There is no definite evidence of sensory loss or weakness in the upper extremities. ASSESSMENT: She is admitted to the hospital with diagnoses of, 1. Hypoesthesias in the right arm. 2. Rule out central nervous system disease. 3. Hypertension. PLAN: 1. Bed rest. 2. IV fluids. 3. Neurology consult. MMODL / IJN: [id number] /
== END 2024-05-09 18:48 | disposition home or self-care (01) ==
LOC: EC 21:26 → 3SCARD 23:10
PROVIDERS: ADMIT Family Medicine; ATTEND Family Medicine
DX: M50.122 Cervical disc disorder at C5-C6 level with radiculopathy (principal); J43.9 Emphysema, unspecified; I69.320 Aphasia following cerebral infarction; I10 Essential (primary) hypertension; F41.9 Anxiety disorder, unspecified; R53.1 Weakness; Z79.82 Long term (current) use of aspirin; Z79.51 Long term (current) use of inhaled steroids; Z79.899 Other long term (current) drug therapy; Z88.1 Allergy status to other antibiotic agents; Z88.8 Allergy status to other drugs, medicaments and biological substances; Z99.81 Dependence on supplemental oxygen; Z87.891 Personal history of nicotine dependence; Z87.440 Personal history of urinary (tract) infections
CPT/HCPCS: 96361 ×2; 96374; 99291; 36415; 94640 ×4; 94760 ×2; 93005; 97530; 97161; 97165; 80061; 80053; 82550; 84484; 85025; 85610; 85730; 81001; 71045; 70496; 70450; 70498; 70553; 72141; G0378 ×3; J2270; Q9967; A9585

== ENCOUNTER → 2024-12-30 | Outpatient (CLI) | payer OTHER ==
[2024-12-30 16:14] LABS: Influenza A Not Detected (Not Detectd); Influenza B Not Detected (Not Detectd); RSV Not Detected (Not Detectd)
== END | disposition home or self-care (01) ==
LOC: LABWHC1 14:54
PROVIDERS: ATTEND Internal Medicine
DX: Z20.822 Contact with and (suspected) exposure to COVID-19 (principal); J06.9 Acute upper respiratory infection, unspecified
CPT/HCPCS: 87636